=== PATIENT | female | born 1970 | race Caucasian/White ===

== ENCOUNTER 2021-07-01 08:38 | Emergency (ER) | payer MEDICAID, SELFPAY ==
[2021-07-01 08:39] VITALS: BP 137/76; PULSE 74; RESP 18; TEMP 36.4; O2SAT 99; BMI 22.3
--- NOTE | 2021-07-01 08:58 | XR_ITS ---
PROCEDURE: XR CHEST PORTABLE CLINICAL HISTORY: Productive cough, fever COMPARISON: No exams were available for comparison FINDINGS: The cardiomediastinal silhouette and pulmonary vascularity are within normal limits. The lungs are clear without infiltrates, suspicious nodules, or pleural effusions. No acute bony abnormalities. IMPRESSION: No acute findings. Dictated by: Carlos Vázquez MD 07/01/2021 09:53 Carlos Vázquez MD in OV 07/01/2021 09:53
--- NOTE | 2021-07-01 08:59 | PC.NURSE ---
Notified rad of CXR
[2021-07-01 09:05] LABS: Coronavirus 19, PCR Not Detected (NotDetected); Influenza A, PCR Not Detected (NotDetected); Influenza B, PCR Not Detected (NotDetected)
--- NOTE | 2021-07-01 09:14 | PC.NURSE ---
Rad at bedside
[2021-07-01 09:15] LABS: Basophils # 0.1 K/mm3 (0-0.2); Eosinophils % 0.6 % (0.1-12.0); Hematocrit 47.8 % (37.0-47.0); Hemoglobin 15.3 g/dL (12.2-16.2); Lymphocytes # 2.3 K/mm3 (0.7-4.5); Lymphocytes % 37.4 % (10-50); Mean Corpuscular HGB Conc 32.1 g/dL (31.8-35.4); Mean Corpuscular Hemoglobin 32.8 pg (27.0-31.2); Mean Corpuscular Volume 102.3 fl (81-99); Mean Platelet Volume 9.5 fl (7.4-10.4); Monocytes # 0.3 K/mm3 (0.1-1.0); Monocytes % 4.9 % (1.7-9.3); Neutrophils # 3.4 K/mm3 (1.8-7.8); Neutrophils % 56.1 % (37.0-80.0); Platelet Count 171 K/mm3 (142-424); Red Blood Count 4.67 M/mm3 (4.20-5.40); Red Cell Distribution Width 13.4 % (11.5-17.5)
[2021-07-01 09:21] LABS: Lactic Acid 0.7 mmol/L (0.7-2.1)
[2021-07-01 09:22] LABS: Alanine Aminotransferase 16 U/L (12-78); Albumin Level 4.1 g/dl (3.5-5.0); Albumin/Globulin Ratio 1.6 (1.1-1.8); Alkaline Phosphatase 110 U/L (38-126); Aspartate Amino Transferase 34 U/L (14-36); Bilirubin,Total 0.2 mg/dl (0.2-1.3); Blood Urea Nitrogen 10 mg/dl (7-17); Calcium 8.9 mg/dl (8.4-10.2); Carbon Dioxide 31 mmol/L (22.0-30.0); Chloride 102 mmol/L (98-107); Creatinine Clearance Estimated 94 mL/min (50-200); Estimated Glomerular Filt Rate 105 ml/min (>60); GFR (African American) 128 ML/MIN (>60); Globulin 2.6 g/dL (1.3-3.2); Glucose 98 mg/dl (74-100); Sodium 138 mmol/L (136-145); Total Protein,Serum 6.7 g/dl (6.3-8.2)
--- NOTE | 2021-07-01 10:18 | HMH.EDGENADL ---
ED Disposition Clinical Impression: Viral infection Disposition: Home, Self-Care Condition on Discharge: Good Instructions: DI for Viral Upper Respiratory Infection -- Adult Referrals: Lane Medina [Primary Care Provider] - Time of Disposition: 10:45 - Critical Care Critical Care Time: No Attestation: On 07/01/21, the high probability of a clinically significant, sudden or life threatening deterioration of the following system(s) required my full and direct attention, intervention and personal management. The time I documented below is in addition to time spent performing reported procedures but includes the following listed in this critical care notation. Medical Decision Making - Medical Records Medical records reviewed: Yes: I reviewed the patient's medical records. - Erwin Inquiry Pt receiving controlled substance: No Vital Signs: 07/01/21 08:39 07/01/21 10:33 Temperature 97.5 F L 98.1 F Temperature Source Oral Pulse Rate 72 Pulse Rate [Right Radial] 74 Respiratory Rate 18 16 Blood Pressure 121/69 Blood Pressure [Right Arm] 137/76 Blood Pressure Mean [Right Arm] 96 Blood Pressure Source [Right Arm] Automatic Cuff Blood Pressure Position [Right Arm] Sitting 02 Sat by Pulse Oximetry 99 Oxygen Delivery Method Room Air Room Air - Lab Data Lab results reviewed: Yes: I reviewed the patient's lab results. Lab Results 07/01/21 08:45: SARS-CoV-2 (PCR) Not detected, Influenza A Untype (PCR) Not detected, Influenza Type B (PCR) Not detected 07/01/21 09:03: WBC 6.0, RBC 4.67, Hgb 15.3, Hct 47.8 H, MCV 102.3 H, MCH 32.8 H, MCHC 32.1, RDW 13.4, Plt Count 171, MPV 9.5, Neut % (Auto) 56.1, Lymph % (Auto) 37.4, Bonner % (Auto) 4.9, Eos % (Auto) 0.6, Baso % (Auto) 1.0, Neut # (Auto) 3.4, Lymph # (Auto) 2.3, Bonner # (Auto) 0.3, Eos # (Auto) 0.0, Baso # (Auto) 0.1 07/01/21 09:03: Sodium 138, Potassium 4.0, Chloride 102, Carbon Dioxide 31 H, Anion Gap 9.0, BUN 10, Creatinine 0.60, Estimated Creat Clear 94, Estimated GFR 105, Est GFR ( Amer) 128, Glucose 98, Calcium 8.9, Total Bilirubin 0.2, AST 34, ALT 16, Alkaline Phosphatase 110, Total Protein 6.7, Albumin 4.1, Globulin 2.6, Albumin/Globulin Ratio 1.6 07/01/21 09:03: Lactate 0.7 Result diagrams: 07/01/21 09:03 07/01/21 09:03 Medical Decision Narrative: Miss Arredondo is a 50-year-old female with no significant past medical history who presents to the emergency department with cough, fever and congestion. Patient is afebrile and hemodynamically stable on arrival. Bedside chest x-ray shows no consolidations or evidence of pneumonia. Patient is swab for COVID-19 which is negative. Basic labs and lactic acid are nonremarkable. Patient is given Tylenol and ibuprofen for symptomatic relief. Patient is instructed to follow-up with her primary care physician in 2 to 3 days for further management and to return to the ED for any concerning symptoms such as difficulty breathing, chest pain, inability to eat and drink or any other concerning symptoms. General Adult HPI - General Chief complaint: Upper Respiratory Infection Stated complaint: hurts all over,congestion,SOA Time Seen by Provider: 07/01/21 08:40 Mode of Arrival: Ambulatory Source of Information: Patient Limitations: No Limitations Description of Symptoms (Recalled from ER Triage Doc. by RN): Pt states that she lost her voice on Monday and regained it on Monday. Pt states that yesterday she began having a productive cough with thick green/yellow sputum, bodyaches, fever, CAO - History of Present Illness HPI narrative: Miss Arredondo is a 50 yo female w/ no significant PMH who presents to the ED for productive cough with thick green/yellow sputum, generalized bodyaches, fever and headache. Patient denies any known COVID exposures, no other sick contacts. Patient reports she is eating and drinking appropriately. No bowel changes, urinary sx, chest pain, dyspnea noted. Patient denies N/V. No other sy
[2021-07-01 10:33] VITALS: BP 121/69; PULSE 72; RESP 16; TEMP 36.7; O2SAT 97
== END 2021-07-01 10:35 | disposition home or self-care (01) ==
PROVIDERS: Emergency Provider Student in an Organized Health Care Education/Training Program; PCP Family Medicine
DX: B34.9 Viral infection, unspecified (principal); Z20.822 Contact with and (suspected) exposure to COVID-19
CPT/HCPCS: 71045; 80053; 83605; 85025; 99283; C9803; U0003; U0005

== ENCOUNTER 2022-11-21 22:20 | Emergency (ER) | payer MEDICAID, SELFPAY ==
[2022-11-21 22:21] VITALS: BMI 27.4
--- NOTE | 2022-11-21 22:21 | XR_ITS ---
PROCEDURE INFORMATION: Exam: XR Chest Exam date and time: 11/21/2022 10:27 PM Age: 51 years old Clinical indication: Cough; Additional info: Chest pain, cough TECHNIQUE: Imaging protocol: Radiologic exam of the chest. Views: 2 views. COMPARISON: CR XR CHEST PORTABLE 07/01/2021 9:11 AM FINDINGS: Lungs: Unremarkable. No consolidation. There is no focal mass. Pleural spaces: There is no pneumothorax. There is no pleural effusion. Heart/Mediastinum: Unremarkable. No cardiomegaly. Bones/joints: There is no fracture present. IMPRESSION: 1. There is no significant traumatic injury to the chest. 2. No acute cardiac or pulmonary process.
--- NOTE | 2022-11-21 22:21 | ECG_ITS ---
APPROVED REPORT Exam: Resting ECG HR:88 bpm ECG Measurements Heart Rate 88 AXES VA 163 P 86 QRSd 81 QRS 116 QT 349 T 87 QTc 394 Conclusion SINUS RHYTHM RIGHT ATRIAL ENLARGEMENT [0.3mV P-WAVE] POSSIBLE LEFT ATRIAL ENLARGEMENT [-0.1mV P-WAVE IN V1/V2] RIGHT VENTRICULAR HYPERTROPHY [SOME/ALL OF: PROMINENT R IN V1, LATE TRANSITION, RAD, RAMBO, SSS] ABNORMAL ECG UNCONFIRMED REPORT Electronically signed by : Romero Wilkes MD 11/22/2022 21:20:34
[2022-11-21 22:25] VITALS: BP 132/73; PULSE 91; RESP 22; TEMP 36.2; O2SAT 94; BMI 21.1
--- NOTE | 2022-11-21 22:33 | CT_ITS ---
PROCEDURE INFORMATION: Exam: CTA Chest With Contrast Exam date and time: 11/21/2022 11:23 PM Age: 51 years old Clinical indication: Injury or trauma; Patient HX: Fall down stairs today; Additional info: Fall with continued pain TECHNIQUE: Imaging protocol: Computed tomographic angiography of the chest with contrast. Exam focused on the arteries. 3D rendering (Not supervised by radiologist): MIP and/or 3D reconstructed images were created by the technologist. Radiation optimization: All CT scans at this facility use at least one of these dose optimization techniques: automated exposure control; mA and/or kV adjustment per patient size (includes targeted exams where dose is matched to clinical indication); or iterative reconstruction. Contrast material: ISOVUE; Contrast volume: 100 ml; Contrast route: INTRAVENOUS (IV); REPORTING DATA: Count of CT and Cardiac NM exams in prior 12 months: This patient has received 0 known CTs and 0 known cardiac nuclear medicine studies in the 12 months prior to the current study. COMPARISON: CR XR CHEST 2V 11/21/2022 10:27 PM FINDINGS: Pulmonary arteries: Normal. No pulmonary emboli. Aorta: Unremarkable. No aortic aneurysm. No aortic dissection. Lungs: Moderate emphysematous changes of the lungs. No focal consolidation. 6 mm densely calcified granuloma in the right lower lobe. Pleural spaces: Unremarkable. No pneumothorax. No pleural effusion. Heart: Unremarkable. No cardiomegaly. No pericardial effusion. Mediastinal space: There no mediastinal hematoma. Lymph nodes: Unremarkable. No enlarged lymph nodes. Bones/joints: No acute fracture. Soft tissues: Unremarkable. IMPRESSION: 1. There is no acute traumatic injury seen. 2. No acute cardiac or pulmonary process. 3. Moderate emphysematous changes of the lungs. COMMENTS: In the absence of a history or active diagnosis of lung cancer, it is recommended that this patient with emphysema be evaluated for enrollment in a low dose CT lung cancer screening program.
--- NOTE | 2022-11-21 22:33 | CT_ITS ---
PROCEDURE INFORMATION: Exam: CT Abdomen And Pelvis With Contrast Exam date and time: 11/21/2022 11:23 PM Age: 51 years old Clinical indication: Injury or trauma; Patient HX: Fall down stairs today; Additional info: Fall with continued pain TECHNIQUE: Imaging protocol: Computed tomography of the abdomen and pelvis with contrast. Radiation optimization: All CT scans at this facility use at least one of these dose optimization techniques: automated exposure control; mA and/or kV adjustment per patient size (includes targeted exams where dose is matched to clinical indication); or iterative reconstruction. Contrast material: ISOVUE; Contrast volume: 100 ml; Contrast route: IV; REPORTING DATA: Count of CT and Cardiac NM exams in prior 12 months: This patient has received 0 known CTs and 0 known cardiac nuclear medicine studies in the 12 months prior to the current study. COMPARISON: CR XR PELVIS 1-2V 11/21/2022 10:58 PM FINDINGS: Liver: No cirrhosis. No mass. There is no liver laceration present. Gallbladder and bile ducts: Normal. No calcified stones. No ductal dilation. Pancreas: No pancreatic ductal dilation. There is no laceration present. Spleen: No splenomegaly. There is no splenic laceration present. Adrenal glands: Normal. No mass. No laceration. Kidneys and ureters: No hydronephrosis. There is no renal laceration present. Stomach and bowel: Unremarkable. No obstruction. No mucosal thickening. Appendix: No evidence of appendicitis. Intraperitoneal space: Unremarkable. No free air. No significant fluid collection. Vasculature: No abdominal aortic aneurysm. No dissection. No rupture.. Lymph nodes: Unremarkable. No enlarged lymph nodes. Urinary bladder: Unremarkable as visualized. Reproductive: Unremarkable as visualized. Bones/joints: No acute fracture. No dislocation. Soft tissues: Unremarkable. IMPRESSION: No significant traumatic injury to the abdomen or pelvis.
--- NOTE | 2022-11-21 22:34 | CT_ITS ---
PROCEDURE INFORMATION: Exam: CT Thoracic Spine Without Contrast Exam date and time: 11/21/2022 11:17 PM Age: 51 years old Clinical indication: Injury or trauma; Patient HX: Fall down stairs today TECHNIQUE: Imaging protocol: Computed tomography of the thoracic spine without contrast. Radiation optimization: All CT scans at this facility use at least one of these dose optimization techniques: automated exposure control; mA and/or kV adjustment per patient size (includes targeted exams where dose is matched to clinical indication); or iterative reconstruction. REPORTING DATA: Count of CT and Cardiac NM exams in prior 12 months: This patient has received 0 known CTs and 0 known cardiac nuclear medicine studies in the 12 months prior to the current study. COMPARISON: CT CERVICAL SPINE WO CON 11/21/2022 11:15 PM FINDINGS: Bones/joints: No acute fracture. Normal alignment. No significant disc bulge or herniation. No severe spinal canal stenosis. No significant neural foraminal narrowing. Soft tissues: Unremarkable. IMPRESSION: There is no significant traumatic injury of the thoracic spine.
--- NOTE | 2022-11-21 22:34 | CT_ITS ---
PROCEDURE INFORMATION: Exam: CT Lumbar Spine Without Contrast Exam date and time: 11/21/2022 11:20 PM Age: 51 years old Clinical indication: Injury or trauma; Patient HX: Fall down stairs today TECHNIQUE: Imaging protocol: Computed tomography of the lumbar spine without contrast. Radiation optimization: All CT scans at this facility use at least one of these dose optimization techniques: automated exposure control; mA and/or kV adjustment per patient size (includes targeted exams where dose is matched to clinical indication); or iterative reconstruction. REPORTING DATA: Count of CT and Cardiac NM exams in prior 12 months: This patient has received 0 known CTs and 0 known cardiac nuclear medicine studies in the 12 months prior to the current study. COMPARISON: CT THORACIC SPINE WO CON 11/21/2022 11:17 PM FINDINGS: Bones/joints: No acute fracture. Normal height. Age appropriate alignment. No significant degenerative process. Soft tissues: Unremarkable. IMPRESSION: There is no significant traumatic injury of the lumbar spine.
--- NOTE | 2022-11-21 22:34 | CT_ITS ---
PROCEDURE INFORMATION: Exam: CT Cervical Spine Without Contrast Exam date and time: 11/21/2022 11:15 PM Age: 51 years old Clinical indication: Injury or trauma; Patient HX: Fall down stairs today TECHNIQUE: Imaging protocol: Computed tomography of the cervical spine without contrast. Radiation optimization: All CT scans at this facility use at least one of these dose optimization techniques: automated exposure control; mA and/or kV adjustment per patient size (includes targeted exams where dose is matched to clinical indication); or iterative reconstruction. REPORTING DATA: Count of CT and Cardiac NM exams in prior 12 months: This patient has received 0 known CTs and 0 known cardiac nuclear medicine studies in the 12 months prior to the current study. COMPARISON: CT HEAD/BRAIN WO CON 11/21/2022 11:13 PM FINDINGS: Bones/joints: No acute fracture. Normal alignment. No significant disc bulge or herniation. No severe spinal canal stenosis. No significant neural foraminal narrowing. Lungs: Lung apices are normal. Soft tissues: Unremarkable. IMPRESSION: No evidence for significant traumatic injury of the cervical spine.
--- NOTE | 2022-11-21 22:34 | CT_ITS ---
PROCEDURE INFORMATION: Exam: CT Head Without Contrast Exam date and time: 11/21/2022 11:13 PM Age: 51 years old Clinical indication: Injury or trauma; Fall TECHNIQUE: Imaging protocol: Computed tomography of the head without contrast. Radiation optimization: All CT scans at this facility use at least one of these dose optimization techniques: automated exposure control; mA and/or kV adjustment per patient size (includes targeted exams where dose is matched to clinical indication); or iterative reconstruction. REPORTING DATA: Count of CT and Cardiac NM exams in prior 12 months: This patient has received 0 known CTs and 0 known cardiac nuclear medicine studies in the 12 months prior to the current study. COMPARISON: HD CT HEAD W/O CONTRAST 09/21/2016 1:33 PM FINDINGS: Brain: Normal. No hemorrhage. Unremarkable white matter. No mass effect. Cerebral ventricles: No ventriculomegaly. Paranasal sinuses: Visualized sinuses are unremarkable. No fluid levels. Mastoid air cells: Visualized mastoid air cells are well aerated. Bones/joints: Unremarkable. No acute fracture. Soft tissues: Unremarkable. IMPRESSION: No acute intracranial abnormality.
--- NOTE | 2022-11-21 22:34 | PC.NURSE ---
patient was made aware we need to obtain a urine sample.
--- NOTE | 2022-11-21 22:35 | XR_ITS ---
PROCEDURE INFORMATION: Exam: XR Pelvis Exam date and time: 11/21/2022 10:58 PM Age: 51 years old Clinical indication: Injury or trauma; Fall; Blunt trauma (contusions or hematomas); Does not apply; Pelvic region TECHNIQUE: Imaging protocol: Radiologic exam of the pelvis. Views: 1 or 2 view. COMPARISON: No relevant prior studies available. FINDINGS: Bones/joints: Unremarkable. No acute fracture. The hips are well located. The symphysis pubis is unremarkable. The sacroiliac joints is unremarkable. Soft tissues: Unremarkable. IMPRESSION: No evidence for significant traumatic injury.
--- NOTE | 2022-11-21 22:35 | PC.NURSE ---
patient gone to RAD at this time.
[2022-11-21 22:37] LABS: Coronavirus 19, PCR Not Detected (NotDetected); Influenza A, PCR Not Detected (NotDetected); Influenza B, PCR Not Detected (NotDetected)
[2022-11-21 22:42] LABS: Basophils # 0.1 K/mm3 (0-0.2); Basophils % 0.9 % (0.1-2.0); Eosinophils # 0.1 K/mm3 (0.0-0.4); Eosinophils % 1.6 % (0.1-12.0); Hematocrit 52.4 % (37.0-47.0); Hemoglobin 16.4 g/dL (12.2-16.2); Lymphocytes # 2.6 K/mm3 (0.7-4.5); Lymphocytes % 37.8 % (10-50); Mean Corpuscular HGB Conc 31.4 g/dL (31.8-35.4); Mean Platelet Volume 9.3 fl (7.4-10.4); Monocytes # 0.5 K/mm3 (0.1-1.0); Monocytes % 7.2 % (1.7-9.3); Neutrophils # 3.6 K/mm3 (1.8-7.8); Neutrophils % 52.4 % (37.0-80.0); Platelet Count 157 K/mm3 (142-424); Red Blood Count 5.13 M/mm3 (4.20-5.40); Red Cell Distribution Width 14.4 % (11.5-17.5); White Blood Count 6.9 K/mm3 (4.8-10.8)
--- NOTE | 2022-11-21 22:44 | PC.NURSE ---
Pt returned from RAD
[2022-11-21 22:47] LABS: Lactic Acid 0.8 mmol/L (0.7-2.1)
[2022-11-21 22:50] LABS: Blood Urea Nitrogen 4 mg/dl (7-17); Calcium 8.7 mg/dl (8.4-10.2); Carbon Dioxide 38 mmol/L (22.0-30.0); Chloride 92 mmol/L (98-107); Creatinine Clearance Estimated 66 mL/min (50-200); Estimated Glomerular Filt Rate 75 ml/min (>60); GFR (African American) 91 ML/MIN (>60); Glucose 89 mg/dl (74-100); Phenytoin (Dilantin) 5.4 ug/ml (10-20); Sodium 141 mmol/L (136-145)
--- NOTE | 2022-11-21 22:54 | PC.NURSE ---
Dr. Arcos at to speak with pt
--- NOTE | 2022-11-21 22:56 | HMH.EDFALL ---
Discharge Plan Disposition Chief Complaint: Fall Prescriptions Prescriptions: No Action phenytoin sodium extended 100 mg capsule 300 mg PO DAILY Label Comments: TAKE 3 CAPSULES BY MOUTH EVERY DAY albuterol sulfate [ProAir HFA] 90 mcg/actuation HFA aerosol inhaler 1 puff INHALATION DAILY Label Comments: inhale 2 puffs four times daily as needed mirtazapine 15 mg tablet 15 mg PO DAILY Referrals Follow up/Referrals: Lane Medina [Primary Care Provider] - See instructions Clinical Impressions Clinical Impression: Fall, Multiple contusions, Seizure Instructions Patient Instructions: DI for Seizure Disorder -- Adult Discharge ED Provider: Josselyn (ED)Ramon Fall HPI General Chief Complaint: Fall Stated Complaint: Chest pain Time Seen by Provider: 11/21/22 22:56 Mode of Arrival: Family Vehicle Source of Information: Patient, Significant Other and Medical Record Limitations: No Limitations Description of Symptoms (Recalled from ER Triage Doc. by RN): 51 YO FEMALE PRESENTS TO BE EVALUATED FOLLOWING A FALL EARLIER THIS DATE. STATES THAT SHE FELL DOWN APPROX 5 STAIRS DUE TO THE STAIRS BEING WET WHILE SHE WAS CLEANING A HOUSE EARLIER. ADDITIONALL MENTIONS THAT SHE HAS A HISTORY OF SEIZURES, HAD HER MOST RECENT ONE ON MONDAY BUT THINKS THERE MIGHT BE A 'SLIGHT CHANCE SHE HAD ONE EARLIER THIS DATE FOLLOWING THE FALL BECAUSE SHE WAS ASLEEP AND THEN WOKE TO AN INCONTINENT EPISODE. PMH: SEIZURES SINCE SHE WAS 15 YO -NORMALLY CONTROLLED BY DILANTIN, COPD-END STAGE, CURRENT DAILY SMOKER, HYPERTENSION, CHRONIC PAIN. ALLERGIC TO PCN AND IODINE BUT STATES SHE HAS HAD IODINE RELATED ITEMS WITHOUT REACTION. DENIES N/V/D. DENIES DYSURIA, DENIES HEMATURIA. NO VISIBLE ABRASIONS TO RIGHT [place] WHICH IS WHERE SHE REPORTS SHE LANDED DURING HER FALL. COMPLAINS OF PAIN POSTERIOR AND ANTERIOR TRUNK, BUE, BILATERAL HIPS. History of Present Illness HPI Narrative: recent sz despite meds and tonight with slip injury and fell down steps complaint: fall Onset (ago): hour(s) Fall from: down stairs (#) Fall witnessed: no Place fall occurred: home Loss of consciousness: unsure Prolonged down time: no Context: tripped/slipped Location of injury: head, neck, back, abdomen and pelvis Severity: moderate Associated symptoms (after fall): headache and neck pain Related Data Home Medications Medication Instructions Recorded Confirmed albuterol sulfate 90 mcg/actuation 1 puff inhalation DAILY 11/21/22 11/21/22 aerosol inhaler (ProAir HFA) INTERMITTENT SOA mirtazapine 15 mg tablet 15 mg PO DAILY nerve 11/21/22 11/21/22 phenytoin sodium extended 100 mg 300 mg PO DAILY SEIZURES 11/21/22 11/22/22 capsule Allergies Allergy/AdvReac Type Severity Reaction Status Date / Time codeine [CODEINE] Allergy Unknown Verified 11/22/22 00:25 iodine [IODINE] Allergy Unknown Verified 11/22/22 00:25 [facility] Disclaimer: The information contained in this section may have been updated after the patient was seen, as this information can be updated by other users. Social History Smoking Status: Current every day smoker alcohol intake: never current occupational status: employed Travel in the last 8 weeks: None ROS Obtained: Yes All systems reviewed & no additional complaints except as documented Physical Exam General General appearance: alert Head Head exam: normocephalic Eye Eye exam: Present PERRL and EOMI ENT ENT exam: Present mucous membranes moist Neck Neck exam: Present trachea midline and tenderness Respiratory Respiratory exam: Present normal lung sounds bilaterally; Absent respiratory distress Cardiovascular Cardiovascular exam: Present regular rate Abdominal Exam Abdominal exam: Present soft; Absent tenderness or guarding Extremities Exam Extremities exam: Present full ROM Back Exam Back exam: Present tenderness and paraspinal tenderness; Absent vertebral tenderness Neurological Exam Neurolog
[2022-11-21 22:59] LABS: NT Pro Brain Natriuretic Pep. < 20.0 pg/mL (0-125)
[2022-11-21 23:00] VITALS: BP 118/72; PULSE 94; O2SAT 90
--- NOTE | 2022-11-21 23:01 | PC.NURSE ---
Pt up to bathroom and able to obtain urine sample.
[2022-11-21 23:02] LABS: Troponin I < 0.01 ng/ml (0.00-0.034)
[2022-11-21 23:03] LABS: Microscopic, Urine URINE MICROSCOPIC (MICROSCOPIC)
[2022-11-21 23:06] LABS: C-Reactive Protein 4.3 mg/L (0-4)
[2022-11-21 23:17] LABS: Appearance,Urine CLEAR (Clear); Bilirubin,Urine Negative (Negative); Blood, Urine Negative (Negative); Color,Urine YELLOW (Yellow); Glucose,Urine (UA) Negative (Negative); Ketones,Urine Negative (Negative); Leukocyte Esterase,Urine Negative (Negative); Nitrate,Urine Negative (Negative); Protein,Urine Negative (Negative); Specific Gravity, Urine <= 1.005 (1.005-1.030); Urobilinogen,Urine 0.2 EU/dl (0.2)
[2022-11-21 23:22] LABS: Erythrocyte Sedimentation Rate 1 mm/hr (0-30)
[2022-11-21 23:26] LABS: Squamous Epithelial Cell,Urine Occasional #/hpf (0-5); WBC,Urine Occasional #/hpf (0-3)
[2022-11-22] VITALS: BP 104/65; PULSE 86; O2SAT 90
[2022-11-22 00:07] LABS: Alanine Aminotransferase 20 U/L (12-78); Albumin Level 4.2 g/dl (3.5-5.0); Alkaline Phosphatase 92 U/L (38-126); Aspartate Amino Transferase 30 U/L (14-36); Bilirubin,Indirect 0.2 mg/dL (0.0-0.9); Bilirubin,Total 0.2 mg/dl (0.2-1.3); Bilirubin,Unconjugated 0.2 mg/dL (0.0-1.1); Total Protein,Serum 6.8 g/dl (6.3-8.2)
--- NOTE | 2022-11-22 00:19 | PC.NURSE ---
called [facility], s/w Joycelyn, to check how much dilantin to give to be therapeutic.
[2022-11-22 00:35] VITALS: BP 123/70; PULSE 88; RESP 19; TEMP 36.6; O2SAT 95
--- NOTE | 2022-11-22 00:37 | PC.NURSE ---
Attempted to give pt Dilantin loading dose, however pt was adamant to leave. She states she will follow up with her PCP regarding her low Dilantin level. Dr. Arcos aware.
== END 2022-11-22 00:37 | disposition home or self-care (01) ==
PROVIDERS: Emergency Provider Emergency Medicine; PCP Family Medicine
DX: G40.919 Epilepsy, unspecified, intractable, without status epilepticus (principal); R07.9 Chest pain, unspecified; R51.9 Headache, unspecified; M54.2 Cervicalgia; F17.200 Nicotine dependence, unspecified, uncomplicated; W10.9XXA Fall (on) (from) unspecified stairs and steps, initial encounter
CPT/HCPCS: 70450; 71046; 71275; 72125; 72128; 72131; 72170; 74177; 80048; 80076; 80185; 81001; 83605; 83735; 83880; 84484; 85025; 85651; 86140; 87040; 87635; 87636; 93005; 96360; 99285; C9803; Q9967; U0003; U0005

== ENCOUNTER 2023-09-05 13:58 | Outpatient (CLI) | payer MEDICAID, SELFPAY ==
--- NOTE | 2023-09-05 13:58 | CT_ITS ---
FINAL REPORT TECHNIQUE: Then section axial CT images of the chest were obtained with contrast. Three-D reformatted images were also obtained.This study was performed with techniques to keep radiation doses as low as reasonably achievable (ALARA). Individualized dose reduction techniques using automated exposure control or adjustment of mA and/or kV according to the patient''s size were employed. CLINICAL HISTORY: Hemptysis COMPARISON: 11/21/2022 FINDINGS: There is no evidence of pulmonary embolism. There is no evidence of thoracic aortic aneurysm or dissection. There is no evidence of mediastinal or hilar mass or adenopathy. Nodule in the superior segment of the left lower lobe measures 15 mm, was 8 mm. 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 There is moderate emphysema and mild scarring. There is a calcified granuloma in the superior segment of the right lower lobe. Limited images of the upper abdomen demonstrate mild bilateral adrenal gland enlargement which is stable and may represent adenoma or hyperplasia. IMPRESSION: Enlarging mass superior segment left lower lobe worrisome for neoplasm. New large mediastinal mass may represent metastatic adenopathy or other neoplasm. Reviewed, Interpreted and Dictated by Jefferson Rojas III, MD Transcribed by Jo Ann Shirley Authenticated and [facility]
[2023-09-05] MEDS: 0.9 % SODIUM CHLORIDE 50 ML VIAL IV (14:28)
[2023-09-05] MEDS: IOPAMIDOL-370 (76%);100ML BOTTLE 70 ML IV (14:29)
== END 2023-09-05 23:59 ==
LOC: RAD 13:58
PROVIDERS: PCP Family Medicine; Visit Provider Internal Medicine Pulmonary Disease
DX: R91.1 Solitary pulmonary nodule (principal); R04.2 Hemoptysis; R59.0 Localized enlarged lymph nodes; R07.9 Chest pain, unspecified; J43.9 Emphysema, unspecified; Z72.0 Tobacco use
CPT/HCPCS: 71275; Q9967

== ENCOUNTER 2023-09-11 17:30 | Inpatient (IN) | payer MEDICAID, SELFPAY ==
[2023-09-08 10:32] VITALS: BMI 19.6
[2023-09-11] VITALS (19 sets, daily range): BP systolic 102–166; BP diastolic 62–98; PULSE 82–105; RESP 12–82; TEMP 36.3–37.2; O2SAT 4–96; BMI 22.1
--- NOTE | 2023-09-11 09:53 | P.PNANES_ITS ---
[facility] Disclaimer: The information contained in this section may have been updated after the patient was seen, as this information can be updated by other users. Medical History Seizure disorder COPD (chronic obstructive pulmonary disease) Hilar lymphadenopathy Mediastinal lymphadenopathy Lung nodule Pulmonary emphysema Hemoptysis Surgical History History of breast surgery History of tubal ligation Family History Other COPD (chronic obstructive pulmonary disease) Cancer Diabetes Hypertension Social History Smoking Status: Current some day smoker alcohol intake: never substance use type: denies use current occupational status: employed Travel in the last 8 weeks: None [facility] Anesthesia Checklist Patient Identification Patient Identification: Arm Band and Verbal (Name & ) Structural Data Admitted From: Home Planned Operative Procedure/s: Bronch Consent for Planned Operative Procedure(s) Verified: Yes Verified Documents: Surgical Consent and History and Physical NPO Status Verified Time NPO: 20:00 Chart Verification Results Verified: CBC, BMP, ECG and Chest Xray Additional verifications Patient : No Anesthesia Reactions: Yes (+PONV) Cardiovascular Assessment Heart Sounds: S1 & S2 Pulse Rhythm: Irregular Peripheral Edema: No Airway Assessment Mallampati Score:: Class II C-Spine Mobility Assessed: Yes (FROM) TMJ Mobility Assessed: Yes Dentition: Edentulous Neurological Assessment Level of Consciousness: Awake, Alert, Appropriate and Follows Commands Hx Seizures: Yes (On Dilantin. Last Sz ~1 y/a) Numbness or tingling in extremities: No Anesthesia Plan Anesthesia Risk discussed: Yes Anesthesia Plan: Verified ASA Class: III Anesthesia Type: General
[2023-09-11] MEDS: LACTATED RINGERS 1000ML 1,000 ML 25 ML IV (10:11)
[2023-09-11 10:21] LABS: Basophils # 0.1 K/mm3 (0-0.2); Basophils % 1.4 % (0.1-2.0); Eosinophils % 0.7 % (0.1-12.0); Hematocrit 52.8 % (37.0-47.0); Hemoglobin 16.7 g/dL (12.2-16.2); Lymphocytes # 1.8 K/mm3 (0.7-4.5); Lymphocytes % 34.9 % (10-50); Mean Corpuscular HGB Conc 31.7 g/dL (31.8-35.4); Mean Corpuscular Hemoglobin 34.5 pg (27.0-31.2); Mean Corpuscular Volume 108.8 fl (81-99); Monocytes # 0.3 K/mm3 (0.1-1.0); Monocytes % 5.6 % (1.7-9.3); Neutrophils # 2.9 K/mm3 (1.8-7.8); Neutrophils % 57.4 % (37.0-80.0); Platelet Count 141 K/mm3 (142-424); Red Blood Count 4.85 M/mm3 (4.20-5.40); Red Cell Distribution Width 14.7 % (11.5-17.5); White Blood Count 5.1 K/mm3 (4.8-10.8)
[2023-09-11 10:22] LABS: Chloride 101 mmol/L (98-107)
[2023-09-11 10:23] LABS: Potassium 3.9 mmoL/L (3.5-5.1); Sodium 139 mmol/L (136-145)
[2023-09-11 10:26] LABS: Anion Gap 5.9 mEq/L (5-15); Blood Urea Nitrogen 10 mg/dl (7-17); Calcium 8.9 mg/dl (8.4-10.2); Carbon Dioxide 36 mmol/L (22.0-30.0); Creatinine Clearance Estimated 69 mL/min (50-200); Estimated Glomerular Filt Rate 88 ml/min (>60); GFR (African American) 106 ML/MIN (>60); Glucose 94 mg/dl (74-100)
[2023-09-11] MEDS: MIDAZOLAM 2MG/2ML VIAL 2 MG (12:30)
--- NOTE | 2023-09-11 15:43 | XR_ITS ---
PROCEDURE INFORMATION: Exam: XR Chest Exam date and time: 09/11/2023 3:47 PM Age: 52 years old Clinical indication: Screening exam; Other screening; Prior surgery; Surgery date: Post-operative (0-2 days); Surgery type: Bronch; Additional info: Md order TECHNIQUE: Imaging protocol: Radiologic exam of the chest. Views: 1 view. COMPARISON: CT ANGIO CHEST PE PROTOCOL 09/05/2023 2:17 PM FINDINGS: Lungs: Hazy airspace opacity in left upper lobe is new from prior exam. Known left upper lobe lesion and mediastinal lymphadenopathy are better characterized on prior chest CT. Pleural spaces: Unremarkable. No pleural effusion. No pneumothorax. Heart/Mediastinum: Unremarkable. No cardiomegaly. Bones/joints: Unremarkable. IMPRESSION: Findings suspicious for left upper lobe pneumonia
--- NOTE | 2023-09-11 15:45 | EXP.ANES.I ---
[facility] Anesthesia Record Part I Anesthesia Record I Intake, IV Amount: 1,000 Hydration: Adequate Estimated blood loss (mL): 0 Urine output (mL): 0 Blood Products used (#): none Blood Pressure: 166/98 SaO2: 91 Pulse Rate: 99 Airway Patency: Patent Respiratory Rate: 16 Temperature: 97.4 F Patient is:: Drowsy and Stable Stable to PACU at:: 15:40
--- NOTE | 2023-09-11 15:46 | P.PCN_ITS ---
Procedure: Date: 09/11/23 Patient Date of :: 1970 Procedure Performed:: Bronchoscopy airway examination, endobronchial ultrasound-guided fine-needle aspiration Indications:: Lung mass and lymphadenopathy Performing Provider:: Guerda Damon MD Referring Provider:: Dr: Lane Medina Sedation:: General anesthesia Procedure:: Bronchoscopy, airway examination and endobronchial ultrasound-guided fine- needle aspiration: Clean EBUS bronchoscopy was advanced the ET tube and lymph node surveillance was performed. Patient noted to have lymph nodes at station 10 L, conglomerate of mass and lymphadenopathy at station 7, station 4L and station 4R. EBUS FNA was performed at each of these lymph node stations and lymph node samples were collected separately in [facility] for cytopathologic examination. No other lymphadenopathy noted. EBUS bronchoscopy was retracted and a clean diagnostic bronchoscopy was advanced for airway surveillance. Airways appeared clear devoid of any mucous plugging secretions or clotting in the right lung garner. Extrinsic airway compression of the left mainstem bronchus noted with near complete occlusion. No obvious endobronchial lesion noted. Bronchoscopy was able to be advanced beyond airway compression on left upper lobe lingular and lower lobe bronchi appeared clear with no obvious evidence of endobronchial lesion. Patient tolerated the procedure well. No acute immediate complications. Findings:: Please see the procedure note Recommendations:: Postoperative bronchoscopy instructions. Follow in pulmonary clinic in 5 to 7 days with the results Follow with PET/CT results Complications:: No acute immediate complications Estimated blood obtained (mL): 5
[2023-09-11] MEDS: IPRATROPIUM/ALBUTEROL 3 ML NEB IH ×3 (16:29→23:07)
[2023-09-11 16:50] LABS: Chloride, Arterial 98 mmol/L (98-107); Lactate Arterial 0.6 mmol/L (0.4-2.0); Potassium, Arterial 4.1 mmoL/L (3.5-5.1); Sodium Arterial 133 mmol/L (137-145)
[2023-09-11 16:52] LABS: ABG Base Excess 3.5 mmol/L (-2.4-2.3); ABG HCO3 29.6 mmhg (22.0-26.0); ABG Oxygen Saturation 87 % (90-100); ABG PH 7.32 mmol/L (7.35-7.45); ABG PO2 51.2 mmhg (80-100); ABG TCO2 31.4 mmhg (23-27)
[2023-09-11 16:57] LABS: Calcium, Arterial 4.7 mg/dL (8.5-10.1)
--- NOTE | 2023-09-11 16:57 | SUR.PHASEI ---
7317: Spoke with Dr. Damon about pt's ABG results. Pt O2 sat 85% on 4L NC. Dr. Damon will admit for O2 management. 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
[2023-09-11 16:58] LABS: ABG PCO2 58.8 mmhg (35.0-45.0); Allen's Test Acceptable; Oxygen 4L NC %; Source Right Radial
--- NOTE | 2023-09-11 17:03 | SUR.PHASEI ---
1635: Spoke with Dr. Damon concerning pt's O2 sat 84% 4L NC after duoneb tx. ABG ordered.
--- NOTE | 2023-09-11 17:13 | P.HP_ITS ---
History of Present Illness *Admission Date: 09/11/23 *Reason for visit:: shortness of breath, hypoxia *History of present illness: 52-year-old female continues to smoke. Has an extensive smoking history with over 30 pack years. Family history of lung cancer and pulmonary disease. Presented to pulmonology clinic a week ago for eval after having an abnormal CT showing lung nodules, lymphadenopathy, lung mass. Mass shows compressive effect on her left mainstem bronchus. Reporting some scant hemoptysis. Brought in electively for bronchoscopy to evaluate lung mass. Tolerated procedure well but after her procedure she developed hypoxia after extubation. Complaining of chest discomfort after biopsy and bronchoscopy. No nausea or vomiting. Alert and oriented but still fatigued from anesthesia. Afebrile. Medicine consulted to evaluate for admission. Patient necessitating 4 to 6 L oxygen to maintain appropriate sats. Reports she wears oxygen as needed at home, 2 L. Wears it rarely. Also reports history of seizures, anxiety, and COPD. Feeling more anxious since diagnosis. Recently started on Klonopin. [facility] Disclaimer: The information contained in this section may have been updated after the patient was seen, as this information can be updated by other users. Medical History (Updated 09/11/23 @ 19:16 by Vipul Cotter MD) Seizure disorder COPD (chronic obstructive pulmonary disease) Hilar lymphadenopathy Mediastinal lymphadenopathy Lung nodule Pulmonary emphysema Hemoptysis Surgical History History of breast surgery History of tubal ligation Family History Other COPD (chronic obstructive pulmonary disease) Cancer Diabetes Hypertension Social History Smoking Status: Current every day smoker tobacco type: cigarettes years smoked: 40 second hand exposure: Yes alcohol intake: never substance use type: marijuana current occupational status: employed Travel in the last 8 weeks: None Review of Systems Review of Systems Review of systems (narrative): 14 point review of systems performed, pertinent positives and negatives as per HPI Meds Home Medications and Allergies Home Medications Medication Instructions Recorded Confirmed Type albuterol sulfate 90 mcg/actuation 1 puff inhalation DAILY 11/21/22 09/11/23 History aerosol inhaler (ProAir HFA) INTERMITTENT SOA phenytoin sodium extended 100 mg 300 mg PO DAILY SEIZURES 11/21/22 09/08/23 History capsule fluticasone fur. 100 mcg-umeclid 1 inh inhalation DAILY 90 days #90 09/04/23 09/08/23 Rx 62.5 mcg-vilant 25 mcg ea inhalat.powder (Trelegy Ellipta) ipratropium 0.5 mg-albuterol 3 mg 3 ml inhalation QID PRN shortness 09/04/23 09/08/23 Rx (2.5 mg base)/3 mL nebulization of breath or wheezing 90 days #270 soln mL nicotine 7 mg/24 hr daily 1 patch transdermal Q24H #28 ea 09/04/23 09/11/23 Rx transdermal patch clonazepam 2 mg tablet (Klonopin) 5 mg PO DAILY Anxiety 09/08/23 09/11/23 History famotidine 20 mg tablet 20 mg PO DAILY 09/08/23 09/11/23 History New Prescriptions to Start Prescriptions: Allergies Allergy/AdvReac Type Severity Reaction Status Date / Time Penicillins Allergy Severe Swelling Verified 09/11/23 09:47 of Lip/Tongue/Throat Exam Data for Last 24 hours Vital signs and Labs for Last 24 Hours: Temp Pulse Resp BP Pulse Ox O2 Del Method O2 Flow Rate 97.4 F L 98 H 16 139/77 95 Nasal Cannula 4 09/11/23 15:46 09/11/23 17:02 09/11/23 17:02 09/11/23 17:02 09/11/23 17:02 09/11/23 17:02 09/11/23 17:02 Laboratory Results - last 24 hr 09/11/23 10:08: WBC 5.1, RBC 4.85, Hgb 16.7 H, Hct 52.8 H, MCV 108.8 H, MCH 34.5 H, MCHC 31.7 L, RDW 14.7, Plt Count 141 L, MPV 10.0, Neut % (Auto) 57.4, Lymph % (Auto) 34.9, [place] % (Auto) 5.6, Eos % (Auto) 0.7, Baso % (Auto) 1.4, Neut # (Auto) 2.9, Lymph # (Auto) 1.8, [place] # (Auto) 0.3, Eos # (Auto) 0.0, Baso # (Auto) 0.1, Sodium 139, Potassium 3.9, Chloride 101, Carbon Dioxide 36 H, Anion Gap 5.9, BUN 10, Creatinine 0.70, Estimated Creat Clear 69, Estimated GFR 88, Est GFR ( Amer) 106, Glucose 94, Calcium 8.9 09/11/23 16:37: Specimen Source Right radial, O2 % 4l nc, ABG pH 7.32 L, ABG pCO2 58.8 H, ABG pO2 51.2 L, ABG HCO3 29.6 H, ABG Total CO2 31.4 H, ABG O2 Saturation 87 L*, ABG Base Excess 3.5 H, Carlos Test Acceptable, ABG Sodium 133 L , ABG Potassium 4.1, ABG Chloride 98, ABG Lactate 0.6, Arterial Blood Potassium 4.1, Arterial Blood Chloride 98 I & O for Last 24 hours: Intake & Output 09/08/23 09/09/23 09/10/23 09/11/23 22:59 22:59 23:59 23:59 Intake Total 1000 / 1000 Balance 1000 / 1000 Weight Constitutional Constitutional: no acute distress, thin and cooperative *Routine HEENT Exam Head: Present normocephalic Eye: Present EOMI and PERRL ENT: Present mucous membranes moist *Routine Neck Exam Neck: Present supple; Absent lymphadenopathy *Routine Respiratory Exam Respiratory: Present prolonged expiratory phase and normal respiratory effort; Absent rhonchi, wheezes or crackles *Routine Cardiovascular Exam Cardiovascular: Present tachycardia Comments: Regular rhythm *Routine Abdominal Exam Abdominal: Present soft and normoactive bowel sounds; Absent tenderness *Routine Rectal Exam Rectal:: deferred *Routine Genitalia Exam Genitalia:: deferred *Routine Extremities Exam Extremities: Absent cyanosis, clubbing or edema *Routine Skin Exam Skin: Present warm; Absent rash *Routine Neurological Exam Neurological: Present alert, oriented X3 and moving all extremities; Absent altered mental status or tremors Comments: Dozing off, will wake and answer questions appropriately but fatigued. Assessment and Plan *Assessment and plan (1) Acute hypoxemic respiratory failure: Status: Acute Category: Medical Code(s): J96.01 - Acute respiratory failure with hypoxia (2) Mediastinal lymphadenopathy: Status: Acute Category: Medical Code(s): R59.0 - Localized enlarged lymph nodes (3) Hilar lymphadenopathy: Status: Acute Category: Medical Code(s): R59.0 - Localized enlarged lymph nodes (4) Seizure disorder: Status: Acute Category: Medical Code(s): G40.909 - Epilepsy, unspecified, not intractable, without status epilepticus (5) Pulmonary emphysema: Status: Acute Qualifiers: Emphysema type: centrilobular Qualified Code(s): J43.2 - Centrilobular emphysema Category: Medical Code(s): J43.9 - Emphysema, unspecified Plan 52-year-old female with history of COPD and tobacco use disorder who presented for elective bronchoscopy. After procedure was hypoxic necessitating supplemental oxygen. Discussed case with pulmonology, request admission for oxygen monitoring overnight. Medicine agreed to admit for further management. Patient still drowsy from anesthesia. Having anxiety with wearing oxygen. Complaining of some mild chest discomfort after her bronch. Hemodynamically stable. Necessitating admission. Problems addressed as follows: Acute hypoxemic respiratory failure COPD Lymphadenopathy -Hypoxic with elevated CO2 after procedure. Necessitating 4 to 6 L supplemental oxygen to maintain sats around 90%. Discussed case with pulmonology, may need to escalate to BiPAP or Vapotherm tonight. -DuoNeb scheduled every 6 hours, budesonide twice daily -No indication for antibiotics at this time. Will continue to monitor -CBC, CMP, magnesium ordered for the morning. - White cell count normal at 5.1, hemoglobin 16.7 - Chemistry with normal electrolytes. Bicarb elevated at 36. - Blood gas with hypercapnia at 58, pH 7.32. pO2 51. -Biopsies obtained of hilar and mediastinal lymphadenopathy. Tissue pathology pending. -Continue Trelegy 100 inhaler Anxiety: Patient on Klonopin at home, says she takes it twice daily as needed, prescribed once daily. Will continue Ativan 0.5 mg every 6 hours as needed for anxiety Seizure disorder: Continue phenytoin 100 mg 3 times a day. Phenytoin level pending Tobacco use disorder: nicotine patch 7 mg daily as needed Full code Regular diet Holding anticoagulation status post [facility] with risk for hemoptysis
[2023-09-11] MEDS: MORPHINE 2MG/ML SYRINGE 2 MG IV (17:19)
--- NOTE | 2023-09-11 17:33 | PC.NURSE ---
arrived by stretcher from surgery
--- NOTE | 2023-09-11 18:12 | ECG_ITS ---
APPROVED REPORT Exam: Resting ECG HR:95 bpm ECG Measurements Heart Rate 95 AXES MI 158 P 93 QRSd 90 QRS 160 QT 350 T 92 QTc 403 Conclusion SINUS RHYTHM ARM LEADS REVERSED [INVERTED P AND QRS IN I] NORMAL ECG INTERPRETATION BASED ON A DEFAULT AGE OF 40 YEARS Electronically signed by : MATTIE JONES, 09/12/2023 02:06:01
[2023-09-11] MEDS: BUDESONIDE 0.5MG/2ML NEB 0.5 MG IH (18:44)
[2023-09-11 20:01] LABS: Phenytoin (Dilantin) 17.3 ug/ml (10-20)
[2023-09-11] MEDS: LORazepam 0.5MG TABLET 0.5 MG PO (20:11)
[2023-09-11] MEDS: PHENYTOIN 100MG CAPSULE 100 MG PO (20:11)
[2023-09-11] MEDS: ACETAMINOPHEN 325MG TAB 650 MG PO (22:11)
[2023-09-11 23:51] LABS: ABG Base Excess 3.3 mmol/L (-2.4-2.3); ABG HCO3 28.8 mmhg (22.0-26.0); ABG Oxygen Saturation 91 % (90-100); ABG PH 7.36 mmol/L (7.35-7.45); ABG PO2 60.8 mmhg (80-100); ABG TCO2 30.4 mmhg (23-27)
[2023-09-12] VITALS (21 sets, daily range): BP systolic 108–157; BP diastolic 54–85; PULSE 72–101; RESP 13–98; TEMP 36.1–37.1; O2SAT 83–99; BMI 22.1
[2023-09-12] LABS: Allen's Test Acceptable; Oxygen 30L/70% VAPOTHERM %; Source Right Radial
[2023-09-12 00:01] LABS: ABG PCO2 52.4 mmhg (35.0-45.0)
--- NOTE | 2023-09-12 02:30 | PC.NURSE ---
Addendum entered by Naomy Lopez RN 09/12/23 06:19: ORDER FOR PEPCID NOT PROTONIX Original Note: PT C/O OF CRUSHING BELLY PAIN ; THIS RN NOTIFIED [facility]; SEE ORDERS FOR PROTONIX
--- NOTE | 2023-09-12 06:00 | XR_ITS ---
FINAL REPORT CLINICAL HISTORY: VAPOTHERM COMPARISON: 11/21/2022 FINDINGS: SINGLE-VIEW CHEST The heart size is normal. The mediastinum is normal. There are new, left lung opacities consistent with pneumonia. Mild right upper lobe opacities are favored to be atelectasis. There is no pneumothorax. IMPRESSION: New left lung pneumonia. Reviewed, Interpreted and Dictated by Jefferson Rojas III, MD Transcribed by Vanessa Valverde Authenticated and [facility]
[2023-09-12] MEDS: IBUPROFEN 400 MG TABLET PO ×2 (06:14→14:14)
[2023-09-12] MEDS: IPRATROPIUM/ALBUTEROL 3 ML NEB IH ×4 (06:19→23:40)
[2023-09-12] MEDS: BUDESONIDE 0.5MG/2ML NEB 0.5 MG IH ×2 (06:20→18:17)
[2023-09-12 07:35] LABS: Alanine Aminotransferase 21 U/L (12-78); Albumin Level 4.3 g/dl (3.5-5.0); Albumin/Globulin Ratio 1.7 (1.1-1.8); Alkaline Phosphatase 110 U/L (38-126); Anion Gap 9.7 mEq/L (5-15); Aspartate Amino Transferase 39 U/L (14-36); Bilirubin,Total 0.4 mg/dl (0.2-1.3); Blood Urea Nitrogen 9 mg/dl (7-17); Calcium 8.9 mg/dl (8.4-10.2); Carbon Dioxide 32 mmol/L (22.0-30.0); Chloride 99 mmol/L (98-107); Creatinine Clearance Estimated 78 mL/min (50-200); Estimated Glomerular Filt Rate 88 ml/min (>60); GFR (African American) 106 ML/MIN (>60); Globulin 2.5 g/dL (1.3-3.2); Glucose 111 mg/dl (74-100); Potassium 3.7 mmoL/L (3.5-5.1); Sodium 137 mmol/L (136-145); Total Protein,Serum 6.8 g/dl (6.3-8.2)
[2023-09-12 07:38] LABS: ABG Base Excess 5.2 mmol/L (-2.4-2.3); ABG Oxygen Saturation 84 % (90-100); ABG PCO2 49.5 mmhg (35.0-45.0); ABG TCO2 31.5 mmhg (23-27)
[2023-09-12 07:39] LABS: Oxygen 80% %; Source L BRACHIAL
[2023-09-12 07:42] LABS: ABG PO2 47.8 mmhg (80-100)
--- NOTE | 2023-09-12 07:53 | EXP.ANES.II ---
[facility] Anesthesia Record Part II Anesthesia Record Part II Discharge Time: 17:12 Destination: Medical Surgical Department PACU nurse assessment reviewed?: Yes Patient Condition:: Good Anesthesia Complications:: None Swallowing reflex intact?: Yes Airway Patency: Patent Cyanosis?: No Blood Pressure: 137/78 SaO2: 96 Respiratory Rate: 19 Pulse Rate: 100 Temperature: 97.4 F Mental Status: Alert & Oriented Pain level:: 5 Nausea and/or vomitting:: None Intake, IV Amount: 0 Hydration: Adequate Comments:: Pt admitted postoperatively d/t hypoxemia/O2 requirements
--- NOTE | 2023-09-12 08:28 | HMH.PHAINT1 ---
Pharmacy Intervention Comments: Verified all home medications using external fill history from pharmacy and spoke with patient at bedside.
[2023-09-12 08:29] LABS: Basophils # 0.1 K/mm3 (0-0.2); Basophils % 0.5 % (0.1-2.0); Eosinophils % 0.3 % (0.1-12.0); Hematocrit 50.9 % (37.0-47.0); Hemoglobin 17.7 g/dL (12.2-16.2); Lymphocytes # 2.6 K/mm3 (0.7-4.5); Lymphocytes % 25.4 % (10-50); Mean Corpuscular HGB Conc 34.7 g/dL (31.8-35.4); Mean Corpuscular Hemoglobin 36.8 pg (27.0-31.2); Mean Corpuscular Volume 106.1 fl (81-99); Mean Platelet Volume 10.5 fl (7.4-10.4); Monocytes # 0.6 K/mm3 (0.1-1.0); Monocytes % 5.5 % (1.7-9.3); Neutrophils # 6.9 K/mm3 (1.8-7.8); Neutrophils % 68.3 % (37.0-80.0); Platelet Count 149 K/mm3 (142-424); Red Cell Distribution Width 14.5 % (11.5-17.5); White Blood Count 10.1 K/mm3 (4.8-10.8)
[2023-09-12] MEDS: FAMOTIDINE 20MG TABLET 20 MG PO (09:13)
[2023-09-12] MEDS: PHENYTOIN 100MG CAPSULE 100 MG PO ×3 (09:13→22:01)
[2023-09-12] MEDS: LORazepam 0.5MG TABLET 0.5 MG PO ×2 (09:52→22:01)
--- NOTE | 2023-09-12 10:11 | P.CONS_ITS ---
History of Present Illness History of present illness: Ms. Arredondo is a 52-year-old female current smoker greater than 30. Presented to the hospital yesterday for an elective bronchoscopy procedure eventually had new onset hypoxic respiratory failure and admitted for further evaluation and management. Patient went bronchoscopy with EBUS FNA. No transbronchial biopsies performed. No significant bleeding noted during the procedure. [facility] Disclaimer: The information contained in this section may have been updated after the patient was seen, as this information can be updated by other users. Medical History (Updated 09/12/23 @ 13:18 by Guerda Damon MD) Pneumonia Seizure disorder COPD (chronic obstructive pulmonary disease) Hilar lymphadenopathy Mediastinal lymphadenopathy Lung nodule Pulmonary emphysema Hemoptysis Surgical History History of breast surgery History of tubal ligation Family History Other COPD (chronic obstructive pulmonary disease) Cancer Diabetes Hypertension Social History (Updated 09/11/23 @ 19:49 by Collette Thurston RN) Smoking Status: Current every day smoker tobacco type: cigarettes years smoked: 40 second hand exposure: Yes alcohol intake: never substance use type: marijuana current occupational status: employed Travel in the last 8 weeks: None Review of Systems Constitutional Constitutional: Denies anorexia, Denies body ache(s), Reports fatigue and Reports lethargy Eyes Eyes: Denies eye discharge, Denies dry eyes, Denies irritation and Denies itchy eyes ENT Ears, Nose, Mouth, and Throat: Denies epistaxis, Denies facial pain, Denies lip swelling and Denies throat swelling *Cardiovascular Cardiovascular: Reports dyspnea and Reports dyspnea on exertion *Respiratory Respiratory: Reports cough, Reports dyspnea, Reports dyspnea on exertion, Denies excessive phlegm production, Denies hemoptysis, Denies pain on inspiration, Denies pain with cough and Denies wheezing *Gastrointestinal Gastrointestinal: Denies abdominal pain, Denies belching and Denies cramping *Musculoskeletal Musculoskeletal: Reports back pain, Reports myalgias and Reports other (No small joint swelling or Pain) Psychiatric Psychiatric: Denies homicidal ideation and Denies suicidal ideation Endocrine Endocrine: Reports fatigue and Denies heat intolerance Hematologic/Lymphatic Hematologic/Lymphatic: Denies easy bleeding and Denies lymphadenopathy Allergic/Immunologic Allergic/Immunologic: Denies itchy eyes, Denies lip swelling, Denies throat swelling and Denies wheezing Pulmonology Exam Inpatient Vital signs and Labs for Last 24 Hours: Temp Pulse Resp BP Pulse Ox O2 Del Method O2 Flow Rate 97.5 F L 80 23 147/76 H 97 BiPAP 30 09/12/23 08:00 09/12/23 08:00 09/12/23 08:00 09/12/23 08:00 09/12/23 08:00 09/12/23 08:00 09/12/23 06:21 FiO2 100 09/12/23 08:38 Laboratory Results - last 24 hr 09/11/23 10:08: WBC 5.1, RBC 4.85, Hgb 16.7 H, Hct 52.8 H, MCV 108.8 H, MCH 34.5 H, MCHC 31.7 L, RDW 14.7, Plt Count 141 L, MPV 10.0, Neut % (Auto) 57.4, Lymph % (Auto) 34.9, [place] % (Auto) 5.6, Eos % (Auto) 0.7, Baso % (Auto) 1.4, Neut # (Auto) 2.9, Lymph # (Auto) 1.8, [place] # (Auto) 0.3, Eos # (Auto) 0.0, Baso # (Auto) 0.1, Sodium 139, Potassium 3.9, Chloride 101, Carbon Dioxide 36 H, Anion Gap 5.9, BUN 10, Creatinine 0.70, Estimated Creat Clear 69, Estimated GFR 88, Est GFR ( Amer) 106, Glucose 94, Calcium 8.9 09/11/23 16:37: Specimen Source Right radial, O2 % 4l nc, ABG pH 7.32 L, ABG pCO2 58.8 H, ABG pO2 51.2 L, ABG HCO3 29.6 H, ABG Total CO2 31.4 H, ABG O2 Saturation 87 L*, ABG Base Excess 3.5 H, Carlos Test Acceptable, ABG Sodium 133 L , ABG Potassium 4.1, ABG Chloride 98, ABG Lactate 0.6, Arterial Blood Potassium 4.1, Arterial Blood Chloride 98 09/11/23 19:27: Phenytoin 17.3 09/11/23 23:49: Specimen Source Right radial, O2 % 30l/70% vapotherm, ABG pH 7.36, ABG pCO2 52.4 H, ABG pO2 60.8 L, ABG HCO3 28.8 H, ABG Total CO2 30.4 H, ABG O2 Saturation 91, ABG Base Excess 3.3 H, Carlos Test Acceptable 09/12/23 06:35: WBC 10.1 D, RBC 4.80, Hgb 17.7 H, Hct 50.9 H, MCV 106.1 H, MCH 36.8 H, MCHC 34.7, RDW 14.5, Plt Count 149, MPV 10.5 H, Neut % (Auto) 68.3, Lymph % (Auto) 25.4, [place] % (Auto) 5.5, Eos % (Auto) 0.3, Baso % (Auto) 0.5, Neut # (Auto) 6.9, Lymph # (Auto) 2.6, [place] # (Auto) 0.6, Eos # (Auto) 0.0, Baso # (Auto) 0.1, Sodium 137, Potassium 3.7, Chloride 99, Carbon Dioxide 32 H, Anion Gap 9.7, BUN 9, Creatinine 0.70, Estimated Creat Clear 78, Estimated GFR 88, Est GFR ( Amer) 106, Glucose 111 H, Calcium 8.9, Magnesium 2.0, Total Bilirubin 0.4, AST 39 H, ALT 21, Alkaline Phosphatase 110, Total Protein 6.8, Albumin 4.3, Globulin 2.5, Albumin/Globulin Ratio 1.7 09/12/23 07:18: Specimen Source L brachial, O2 % 80%, ABG pH 7.40, ABG pCO2 49.5 H, ABG pO2 47.8 L, ABG HCO3 30.0 H, ABG Total CO2 31.5 H, ABG O2 Saturation 84 L*, ABG Base Excess 5.2 H I & O for Labs for Last 24 Hours: Intake & Output 09/09/23 09/10/23 09/11/23 09/12/23 22:59 23:59 23:59 23:59 Intake Total 1000 / 1000 0 / 0 Output Total 0 / 0 Balance 1000 / 1000 0 / 0 Weight 117 lb 9 oz 117 lb 8.984 oz Constitutional: Present severe distress Head: Present normocephalic and atraumatic ENT: Present normal exam, normal oropharynx and mucous membranes moist Neck: Present normal inspection and full ROM Respiratory: Present respiratory distress, wheezes and diminished air movement; Absent able to speak in complete sentences Cardiac: Present S1/S2, Tachycardia and radial pulses present GI: Present soft and distention; Absent tenderness or guarding Rectal (female): Present deferred (female): Present deferred Skin: Present intact; Absent cyanosis or jaundice Neuro: Present alert, awake and oriented x 3 Extremities: Present normal inspection; Absent clubbing or cyanosis Psychiatric: Present normal affect and cooperative Meds Home Medications and Allergies Home Medications Medication Instructions Recorded Confirmed Type albuterol sulfate 90 mcg/actuation 1 puff inhalation DAILY 11/21/22 09/11/23 History aerosol inhaler (ProAir HFA) phenytoin sodium extended 100 mg 100 mg PO TID 11/21/22 09/12/23 History capsule fluticasone fur. 100 mcg-umeclid 1 inh inhalation DAILY 90 days #90 09/04/23 09/08/23 Rx 62.5 mcg-vilant 25 mcg ea inhalat.powder (Trelegy Ellipta) ipratropium 0.5 mg-albuterol 3 mg 3 ml inhalation QID PRN shortness 09/04/23 09/08/23 Rx (2.5 mg base)/3 mL nebulization of breath or wheezing 90 days #270 soln mL clonazepam 0.5 mg tablet 0.5 - 1 mg PO NEEDED PRN Anxiety 09/12/23 09/12/23 History ibuprofen 200 mg tablet 200 - 400 mg PO Q4-6H PRN Pain 09/12/23 09/12/23 History pantoprazole 40 mg tablet,delayed 40 mg PO DAILY 09/12/23 09/12/23 History release New Prescriptions to Start Prescriptions: Allergies Allergy/AdvReac Type Severity Reaction Status Date / Time Penicillins Allergy Severe Swelling Verified 09/11/23 09:47 of Lip/Tongue/Throat Results Laboratory Findings 09/12/23 06:35 09/12/23 06:35 ABG ABG pH 7.40 mmol/L (7.35-7.45) 09/12/23 07:18 ABG pCO2 49.5 mmhg (35.0-45.0) H 09/12/23 07:18 ABG pO2 47.8 mmhg (80-100) L 09/12/23 07:18 ABG O2 Saturation 84 % (90-100) L* 09/12/23 07:18 Abnormal lab findings: Abnormal Labs 09/11/23 09/11/23 09/11/23 10:08 16:37 23:49 Hgb 16.7 H Hct 52.8 H MCV 108.8 H MCH 34.5 H MCHC 31.7 L Plt Count 141 L MPV ABG pH 7.32 L ABG pCO2 58.8 H 52.4 H ABG pO2 51.2 L 60.8 L ABG HCO3 29.6 H 28.8 H ABG Total CO2 31.4 H 30.4 H ABG O2 Saturation 87 L* ABG Base Excess 3.5 H 3.3 H ABG Sodium 133 L Carbon Dioxide 36 H Glucose AST 09/12/23 09/12/23 06:35 07:18 Hgb 17.7 H Hct 50.9 H MCV 106.1 H MCH 36.8 H MCHC Plt Count MPV 10.5 H ABG pH ABG pCO2 49.5 H ABG pO2 47.8 L ABG HCO3 30.0 H ABG Total CO2 31.5 H ABG O2 Saturation 84 L* ABG Base Excess 5.2 H ABG Sodium Carbon Dioxide 32 H Glucose 111 H AST 39 H Assessment and Plan *Assessment and plan (1) Acute hypoxemic respiratory failure: Status: Acute Category: Medical Code(s): J96.01 - Acute respiratory failure with hypoxia (2) Hilar lymphadenopathy: Status: Acute Category: Medical Code(s): R59.0 - Localized enlarged lymph nodes (3) Mediastinal lymphadenopathy: Status: Acute Category: Medical Code(s): R59.0 - Localized enlarged lymph nodes (4) Lung nodule: Status: Acute Category: Medical Code(s): R91.1 - Solitary pulmonary nodule (5) Pulmonary emphysema: Status: Acute Qualifiers: Emphysema type: centrilobular Qualified Code(s): J43.2 - Centrilobular emphysema Category: Medical Code(s): J43.9 - Emphysema, unspecified (6) Pneumonia: Status: Acute Category: Medical Code(s): J18.9 - Pneumonia, unspecified organism Plan Ms. Arredondo is a 52-year-old female current smoker greater than 30. Presented to the hospital yesterday for an elective bronchoscopy procedure eventually had new onset hypoxic respiratory failure and admitted for further evaluation and management. Patient went bronchoscopy with EBUS FNA. No transbronchial biopsies performed. No significant bleeding noted during the procedure. Chest x-ray from postprocedure concerning for worsening left lung collapse. Currently complete with underlying airspace disease. No significant leukocytosis upon admission. Afebrile. On examination decreased breath sounds in left lung garner. Patient appears very weak. Unable to use incentive spirometry. Plan: -Continue positive pressure ventilation currently on CPAP of 12 and FiO2 75% will continue to wean as tolerated. Wean to nasal cannula patient experienced desaturation to 84%. Will closely monitor for the time and the need for transfer to higher level of care for possible left main bronchus stenting to relieve obstruction and improve ventilation. -Continue DuoNebs every 6 hours along with Pulmicort every 12 scheduled -Initiate levofloxacin 750 mg daily -Follow bronchoscopy results # Thank you for involving pulmonary in this patient care. Will continue to follow.
[2023-09-12] MEDS: LEVOFLOXACIN/D5W 750 MG/150 ML 750 MG/150 ML PIGGYBACK 100 MG IV (14:02)
[2023-09-12] MEDS: LORazepam 2MG/ML VIAL 0.5 MG IV (15:23)
--- NOTE | 2023-09-12 15:26 | XR_ITS ---
FINAL REPORT CLINICAL HISTORY: PNM COMPARISON: 09/12/2023 FINDINGS: SINGLE-VIEW CHEST The heart size is normal. The mediastinum is normal. There is a moderate left effusion with improved aeration in the left lung. There is no pneumothorax. IMPRESSION: Moderate left effusion with improved aeration in the left lung. Reviewed, Interpreted and Dictated by Jefferson Rojas III, MD Transcribed by Vanessa Valverde Authenticated and [facility]
--- NOTE | 2023-09-12 17:12 | P.PN_ITS ---
Subjective *Date: 09/12/23 *Time: 17:12 Interval history: alert awake, seen at bedside, on BIPAP, but able to respond apporopriately to commands Exam Data for Last 24 hours Vital signs and Labs for Last 24 Hours: Temp Pulse Resp BP Pulse Ox O2 Del Method O2 Flow Rate 97.5 F L 98 H 21 125/63 99 CPAP 30 09/12/23 16:00 09/12/23 16:00 09/12/23 14:00 09/12/23 14:00 09/12/23 14:00 09/12/23 14:54 09/12/23 08:40 FiO2 100 09/12/23 14:15 Laboratory Results - last 24 hr 09/11/23 19:27: Phenytoin 17.3 09/11/23 23:49: Specimen Source Right radial, O2 % 30l/70% vapotherm, ABG pH 7.36, ABG pCO2 52.4 H, ABG pO2 60.8 L, ABG HCO3 28.8 H, ABG Total CO2 30.4 H, ABG O2 Saturation 91, ABG Base Excess 3.3 H, Carlos Test Acceptable 09/12/23 06:35: WBC 10.1 D, RBC 4.80, Hgb 17.7 H, Hct 50.9 H, MCV 106.1 H, MCH 36.8 H, MCHC 34.7, RDW 14.5, Plt Count 149, MPV 10.5 H, Neut % (Auto) 68.3, Lymph % (Auto) 25.4, [place] % (Auto) 5.5, Eos % (Auto) 0.3, Baso % (Auto) 0.5, Neut # (Auto) 6.9, Lymph # (Auto) 2.6, [place] # (Auto) 0.6, Eos # (Auto) 0.0, Baso # (Auto) 0.1, Sodium 137, Potassium 3.7, Chloride 99, Carbon Dioxide 32 H, Anion Gap 9.7, BUN 9, Creatinine 0.70, Estimated Creat Clear 78, Estimated GFR 88, Est GFR ( Amer) 106, Glucose 111 H, Calcium 8.9, Magnesium 2.0, Total Bilirubin 0.4, AST 39 H, ALT 21, Alkaline Phosphatase 110, Total Protein 6.8, Albumin 4.3, Globulin 2.5, Albumin/Globulin Ratio 1.7 09/12/23 07:18: Specimen Source L brachial, O2 % 80%, ABG pH 7.40, ABG pCO2 49.5 H, ABG pO2 47.8 L, ABG HCO3 30.0 H, ABG Total CO2 31.5 H, ABG O2 Saturation 84 L*, ABG Base Excess 5.2 H I & O for Last 24 hours: Intake & Output 09/09/23 09/10/23 09/11/23 09/12/23 22:59 23:59 23:59 23:59 Intake Total 1000 / 1000 0 / 0 Output Total 0 / 0 300 / 300 Balance 1000 / 1000 -300 / -300 Weight 53.325 kg 53.325 kg Constitutional Comments: on bipap, alert awake *Routine HEENT Exam Head: Present normocephalic Eye: Present EOMI and PERRL ENT: Present mucous membranes moist *Routine Neck Exam Neck: Present supple; Absent lymphadenopathy *Routine Respiratory Exam Respiratory: Present distant breath sounds and diminished air movement *Routine Cardiovascular Exam Cardiovascular: Present RRR *Routine Abdominal Exam Abdominal: Present soft and normoactive bowel sounds; Absent tenderness *Routine Extremities Exam Extremities: Absent cyanosis, clubbing or edema *Routine Skin Exam Skin: Present warm; Absent rash *Routine Neurological Exam Neurological: Present alert and oriented X3 Assessment and Plan *Assessment and plan (1) Acute hypoxemic respiratory failure: Status: Acute Category: Medical Code(s): J96.01 - Acute respiratory failure with hypoxia (2) Mediastinal lymphadenopathy: Status: Acute Category: Medical Code(s): R59.0 - Localized enlarged lymph nodes (3) Hilar lymphadenopathy: Status: Acute Category: Medical Code(s): R59.0 - Localized enlarged lymph nodes (4) Seizure disorder: Status: Acute Category: Medical Code(s): G40.909 - Epilepsy, unspecified, not intractable, without status epilepticus (5) Pulmonary emphysema: Status: Acute Qualifiers: Emphysema type: centrilobular Qualified Code(s): J43.2 - Centrilobular emphysema Category: Medical Code(s): J43.9 - Emphysema, unspecified Plan Patient is a 52-year-old female who presents today for hospital due to shortness of breath. Patient was started on BiPAP Assessment and plan Acute hypoxic respiratory failure COPD exacerbation Left lung collapse Continue BiPAP Continue DuoNebs Continue levofloxacin Status post bronchoscopy Pulmonary following-appreciate help Monitor blood gases Continue trilogy Anxiety -Continue Klonopin Seizure disorder Continue phenytoin Tobacco use -Continue nicotine patch DVT prophylaxis-heparin
--- NOTE | 2023-09-12 17:20 | PC.NURSE ---
Left side of lungs diminished, right side clear. Patient able to tolerate cpap when given ativan for anxiety. Chest pain reported by patient, relieved with anxiety medication. Patient able to ambulate to bedside but still feels very weak. VS stable but patient unable to tolerate vapotherm or nasal cannula.
[2023-09-13] VITALS (16 sets, daily range): BP systolic 117–151; BP diastolic 64–76; PULSE 77–125; RESP 16–30; TEMP 36.6–37.2; O2SAT 82–94; BMI 19.8
[2023-09-13] MEDS: clonazePAM 1MG TABLET 1 MG PO ×2 (00:37→20:37)
--- NOTE | 2023-09-13 01:15 | PC.NURSE ---
@ 0037 THIS PT NOTIFIED THIS RN IF THE NEW MED, KLONOPIN, DOES NOT HELP HER GET ANY SLEEP THAT SHE WILL BE WALKING OUT OF THE HOSPITAL SO SHE CAN GO HOME AND SLEEP. THIS RN HAS EDUCATED PT OVER AND OVER FOR 2 PM SHIFTS NOW THAT SHE IS NOT OXYGENATING WELL, BUT PT CONTINUES TO BE RESISTIVE OF CARE AND PLAN OF CARE FOR HER. @0120 PT IS STATING SHE IS UNCOMFORTABLE AND IS REFUSING TO WEAR CPAP AT THIS TIME, BUT DID AGREE TO WEAR OXYGEN; THIS RN NOTIFIED RT TO COME TO BEDSIDE FOR NC / VAPOTHERM SET UP
[2023-09-13] MEDS: IPRATROPIUM/ALBUTEROL 3 ML NEB IH (06:27)
[2023-09-13] MEDS: BUDESONIDE 0.5MG/2ML NEB 0.5 MG IH (06:27)
--- NOTE | 2023-09-13 07:43 | PC.NURSE ---
pt got up to bsc and back to bed, pt's oxygen saturations 80-83% on 6LNC, asked pt if could put vapotherm back on, pt refused to put vapotherm on and told this RN it takes a minute to get back up , family at bedside, call light within reach, pt eating breakfast
[2023-09-13] MEDS: PHENYTOIN 100MG CAPSULE 100 MG PO ×3 (08:34→20:37)
[2023-09-13] MEDS: LORazepam 1MG TABLET 1 MG PO ×2 (08:35→14:36)
[2023-09-13] MEDS: FAMOTIDINE 20MG TABLET 20 MG PO (08:35)
--- NOTE | 2023-09-13 09:43 | XR_ITS ---
FINAL REPORT CLINICAL HISTORY: Hypoxia COMPARISON: 09/12/2023 FINDINGS: A single portable view of the chest was obtained. The heart size and pulmonary vascularity are within normal limits. The mediastinum is within normal limits. There is a moderate left pleural effusion. Worsening left lung opacities are consistent with worsening pneumonia. The bony thorax is intact. IMPRESSION: Worsening pneumonia. Moderate left pleural effusion. Reviewed, Interpreted and Dictated by Jefferson Rojas III, MD Transcribed by Jo Ann Shirley Authenticated and [facility]
--- NOTE | 2023-09-13 09:43 | EXP.PULM.PN ---
Subjective *Date: 09/13/23 *Time: 12:17 Interval history: No acute respiratory events overnight. Patient admits improving respiratory status. Pulmonology Exam Inpatient Vital signs and Labs for Last 24 Hours: Temp Pulse Resp BP Pulse Ox O2 Del Method O2 Flow Rate 97.8 F 106 H 18 136/74 94 L Nasal Cannula 6 09/13/23 07:44 09/13/23 06:27 09/13/23 06:00 09/13/23 06:00 09/13/23 06:27 09/13/23 07:00 09/13/23 07:00 FiO2 100 09/12/23 19:14 I & O for Labs for Last 24 Hours: Intake & Output 09/10/23 09/11/23 09/12/23 09/13/23 23:59 23:59 23:59 23:59 Intake Total 1000 / 1000 250 / 250 510 / 510 Output Total 0 / 0 300 / 300 0 / 0 Balance 1000 / 1000 -50 / -50 510 / 510 Weight 117 lb 9 oz 117 lb 8.984 oz 104 lb 11.2 oz Constitutional: Present severe distress Head: Present normocephalic and atraumatic ENT: Present normal exam, normal oropharynx and mucous membranes moist Neck: Present normal inspection and full ROM Respiratory: Present respiratory distress, wheezes and diminished air movement; Absent able to speak in complete sentences Cardiac: Present S1/S2, Tachycardia and radial pulses present GI: Present soft and distention; Absent tenderness or guarding Rectal (female): Present deferred (female): Present deferred Skin: Present intact; Absent cyanosis or jaundice Neuro: Present alert, awake and oriented x 3 Extremities: Present normal inspection; Absent clubbing or cyanosis Psychiatric: Present normal affect and cooperative Assessment and Plan *Assessment and plan (1) Acute hypoxemic respiratory failure: Status: Acute Category: Medical Code(s): J96.01 - Acute respiratory failure with hypoxia (2) Hilar lymphadenopathy: Status: Acute Category: Medical Code(s): R59.0 - Localized enlarged lymph nodes (3) Mediastinal lymphadenopathy: Status: Acute Category: Medical Code(s): R59.0 - Localized enlarged lymph nodes (4) Lung nodule: Status: Acute Category: Medical Code(s): R91.1 - Solitary pulmonary nodule (5) Pulmonary emphysema: Status: Acute Qualifiers: Emphysema type: centrilobular Qualified Code(s): J43.2 - Centrilobular emphysema Category: Medical Code(s): J43.9 - Emphysema, unspecified (6) Pneumonia: Status: Acute Category: Medical Code(s): J18.9 - Pneumonia, unspecified organism Plan Ms. Arredondo is a 52-year-old female current smoker greater than 30. Presented to the hospital yesterday for an elective bronchoscopy procedure eventually had new onset hypoxic respiratory failure and admitted for further evaluation and management. Patient went bronchoscopy with EBUS FNA. No transbronchial biopsies performed. No significant bleeding noted during the procedure. Chest x-ray from postprocedure concerning for worsening left lung collapse. Currently complete with underlying airspace disease. No significant leukocytosis upon admission. Afebrile. On initial examination decreased breath sounds in left lung garner. Patient appears very weak. Unable to use incentive spirometry. Interval update: Chest x-ray on positive pressure ventilation to significantly improved aeration from yesterday and from this morning. Continued to be needing oxygen supplementation. Patient has been refusing positive pressure ventilation at this point of time. On nasal cannula oxygen supplementation at 6 L, saturating 88 to 90% this morning. Discussed extensively regarding patient's need to be in the hospital ending clinical improvement Plan: -Incentive spirometry and flutter valve. -Nasal cannula oxygen supplementation to maintain O2 saturation goal of 90 to 95% -Continue DuoNebs every 6 hours along with Pulmicort every 12 scheduled -Continue levofloxacin 750 mg daily. Sputum culture induction today -Follow final bronchoscopy results # Thank you for involving pulmonary in this patient care. Will continue to follow.
--- NOTE | 2023-09-13 11:26 | PC.NURSE ---
PATIENT REFUSED BREATHING TREATMENT
[2023-09-13] MEDS: FLUTICASONE/UMECLIDIN/VILANTER 100/62.5/25MCG INHALER 1 PUFF IH (13:16)
[2023-09-13] MEDS: LEVOFLOXACIN/D5W 750 MG/150 ML 750 MG/150 ML PIGGYBACK 100 MG IV (14:36)
--- NOTE | 2023-09-13 17:08 | EXP.PN ---
Subjective *Date: 09/13/23 *Time: 17:08 Interval history: alert awake, seen at bedside, was on vapotherm, per RN patient has been refusing Vapotherm Exam Data for Last 24 hours Vital signs and Labs for Last 24 Hours: Temp Pulse Resp BP Pulse Ox O2 Del Method O2 Flow Rate 98.4 F 105 H 30 H 125/73 86 L Nasal Cannula 6 09/13/23 16:00 09/13/23 12:00 09/13/23 10:00 09/13/23 10:00 09/13/23 10:00 09/13/23 11:00 09/13/23 11:00 FiO2 100 09/12/23 19:14 I & O for Last 24 hours: Intake & Output 09/10/23 09/11/23 09/12/23 09/13/23 23:59 23:59 23:59 23:59 Intake Total 1000 / 1000 250 / 250 750 / 750 Output Total 0 / 0 300 / 300 0 / 0 Balance 1000 / 1000 -50 / -50 750 / 750 Weight 53.325 kg 53.325 kg 47.491 kg Constitutional Comments: alert awake, on vaoptherm *Routine HEENT Exam Head: Present normocephalic Eye: Present EOMI and PERRL ENT: Present mucous membranes moist *Routine Neck Exam Neck: Present supple; Absent lymphadenopathy *Routine Respiratory Exam Respiratory: Present distant breath sounds and diminished air movement *Routine Cardiovascular Exam Cardiovascular: Present RRR *Routine Abdominal Exam Abdominal: Present soft and normoactive bowel sounds; Absent tenderness *Routine Extremities Exam Extremities: Absent cyanosis, clubbing or edema *Routine Skin Exam Skin: Present warm; Absent rash *Routine Neurological Exam Neurological: Present alert and oriented X3 Assessment and Plan *Assessment and plan (1) Acute hypoxemic respiratory failure: Status: Acute Category: Medical Code(s): J96.01 - Acute respiratory failure with hypoxia (2) Mediastinal lymphadenopathy: Status: Acute Category: Medical Code(s): R59.0 - Localized enlarged lymph nodes (3) Hilar lymphadenopathy: Status: Acute Category: Medical Code(s): R59.0 - Localized enlarged lymph nodes (4) Seizure disorder: Status: Acute Category: Medical Code(s): G40.909 - Epilepsy, unspecified, not intractable, without status epilepticus (5) Pulmonary emphysema: Status: Acute Qualifiers: Emphysema type: centrilobular Qualified Code(s): J43.2 - Centrilobular emphysema Category: Medical Code(s): J43.9 - Emphysema, unspecified Plan Patient is a 52-year-old female who presents today for hospital due to shortness of breath. Patient was started on BiPAP Assessment and plan Acute hypoxic respiratory failure COPD exacerbation Left lung collapse Continue BiPAP Continue DuoNebs Continue levofloxacin Status post bronchoscopy Pulmonary following-appreciate help Monitor blood gases Continue trilogy Anxiety -Continue Klonopin Seizure disorder Continue phenytoin Tobacco use -Continue nicotine patch DVT prophylaxis-heparin continue to wean down O2 needs, continue IV abx, DC 1-2 days
[2023-09-13] MEDS: ONDANSETRON 4MG/2ML VIAL 4 MG IV (18:29)
[2023-09-14] VITALS (10 sets, daily range): BP systolic 104–135; BP diastolic 53–77; PULSE 95–110; RESP 15–25; TEMP 36.8–37.3; O2SAT 82–94; BMI 19.6
[2023-09-14] MEDS: IPRATROPIUM/ALBUTEROL 3 ML NEB IH (05:46)
[2023-09-14] MEDS: FLUTICASONE/UMECLIDIN/VILANTER 100/62.5/25MCG INHALER 1 PUFF IH (05:46)
--- NOTE | 2023-09-14 06:12 | PC.NURSE ---
TRANSFER OF CARE @ 0600 TO JOCELYNE, RN EQ, C PROGRAMMER DOWNGRADED PT TO M/S TELE FROM [place] @ [id number]
[2023-09-14] MEDS: FAMOTIDINE 20MG TABLET 20 MG PO ×2 (07:50→20:44)
[2023-09-14] MEDS: PHENYTOIN 100MG CAPSULE 100 MG PO ×3 (07:50→20:44)
[2023-09-14] MEDS: LORazepam 1MG TABLET 1 MG PO ×3 (07:50→19:38)
--- NOTE | 2023-09-14 07:51 | PC.NURSE ---
Resp called for breathing treatment and states she was just given one at around 0530 this am. They are aware her sats are now 82% on 02 on 6L NC.
[2023-09-14 09:06] LABS: Basophils # 0.1 K/mm3 (0-0.2); Basophils % 0.6 % (0.1-2.0); Eosinophils # 0.1 K/mm3 (0.0-0.4); Eosinophils % 0.7 % (0.1-12.0); Hematocrit 48.5 % (37.0-47.0); Hemoglobin 16.1 g/dL (12.2-16.2); Lymphocytes # 1.5 K/mm3 (0.7-4.5); Lymphocytes % 19.4 % (10-50); Mean Corpuscular HGB Conc 33.2 g/dL (31.8-35.4); Mean Corpuscular Hemoglobin 35.2 pg (27.0-31.2); Mean Corpuscular Volume 105.9 fl (81-99); Mean Platelet Volume 9.3 fl (7.4-10.4); Monocytes # 0.4 K/mm3 (0.1-1.0); Monocytes % 5.8 % (1.7-9.3); Neutrophils # 5.5 K/mm3 (1.8-7.8); Neutrophils % 73.5 % (37.0-80.0); Platelet Count 130 K/mm3 (142-424); Red Blood Count 4.58 M/mm3 (4.20-5.40); Red Cell Distribution Width 14.3 % (11.5-17.5); White Blood Count 7.5 K/mm3 (4.8-10.8)
[2023-09-14 09:17] LABS: Chloride 97 mmol/L (98-107); Potassium 3.3 mmoL/L (3.5-5.1); Sodium 136 mmol/L (136-145)
[2023-09-14 09:20] LABS: Anion Gap 5.3 mEq/L (5-15); Blood Urea Nitrogen 9 mg/dl (7-17); Calcium 8.8 mg/dl (8.4-10.2); Carbon Dioxide 37 mmol/L (22.0-30.0); Creatinine Clearance Estimated 61 mL/min (50-200); Estimated Glomerular Filt Rate 75 ml/min (>60); GFR (African American) 91 ML/MIN (>60); Glucose 160 mg/dl (74-100)
--- NOTE | 2023-09-14 09:44 | XR_ITS ---
FINAL REPORT CLINICAL HISTORY: Hypoxia COMPARISON: 09/13/2023 FINDINGS: A single portable view of the chest was obtained. The heart size and pulmonary vascularity are within normal limits. The mediastinum is within normal limits. There is significantly improved aeration of the left lung with persistent mild opacities. There is a small left pleural effusion. The bony thorax is intact. IMPRESSION: Significantly improved aeration left lung with persistent mild opacities. Small left pleural effusion. Reviewed, Interpreted and Dictated by Jefferson Rojas III, MD Transcribed by Jo Ann Shirley Authenticated and [facility]
--- NOTE | 2023-09-14 09:44 | EXP.PULM.PN ---
Subjective *Date: 09/14/23 *Time: 12:42 Interval history: Continued episodes of hypoxia while on nasal cannula. Patient adamant and refusing to be on noninvasive ventilatory therapy. She also would like to go home Pulmonology Exam Inpatient Vital signs and Labs for Last 24 Hours: Temp Pulse Resp BP Pulse Ox O2 Del Method O2 Flow Rate 98.7 F 109 H 19 131/74 82 L Nasal Cannula 6 09/14/23 07:54 09/14/23 07:54 09/14/23 07:54 09/14/23 07:54 09/14/23 07:56 09/14/23 07:59 09/14/23 07:59 FiO2 100 09/12/23 19:14 Laboratory Results - last 24 hr 09/14/23 08:25: WBC 7.5 D, RBC 4.58, Hgb 16.1, Hct 48.5 H, MCV 105.9 H, MCH 35.2 H, MCHC 33.2, RDW 14.3, Plt Count 130 L, MPV 9.3, Neut % (Auto) 73.5, Lymph % (Auto) 19.4, [place] % (Auto) 5.8, Eos % (Auto) 0.7, Baso % (Auto) 0.6, Neut # (Auto) 5.5, Lymph # (Auto) 1.5, [place] # (Auto) 0.4, Eos # (Auto) 0.1, Baso # (Auto) 0.1, Sodium 136, Potassium 3.3 L, Chloride 97 L, Carbon Dioxide 37 H, Anion Gap 5.3, BUN 9, Creatinine 0.80, Estimated Creat Clear 61, Estimated GFR 75, Est GFR ( Amer) 91, Glucose 160 H, Calcium 8.8 I & O for Labs for Last 24 Hours: Intake & Output 09/11/23 09/12/23 09/13/23 09/14/23 23:59 23:59 23:59 23:59 Intake Total 1000 / 1000 250 / 250 1020 / 1020 240 / 240 Output Total 0 / 0 300 / 300 0 / 0 0 / 0 Balance 1000 / 1000 -50 / -50 1020 / 1020 240 / 240 Weight 117 lb 9 oz 117 lb 8.984 oz 104 lb 11.2 oz 104 lb 1.6 oz Constitutional: Present severe distress Head: Present normocephalic and atraumatic ENT: Present normal exam, normal oropharynx and mucous membranes moist Neck: Present normal inspection and full ROM Respiratory: Present respiratory distress, wheezes, diminished air movement and able to speak in complete sentences Comment:: Improving aeration in the left lung garner Cardiac: Present S1/S2, Tachycardia and radial pulses present GI: Present soft and distention; Absent tenderness or guarding Rectal (female): Present deferred (female): Present deferred Skin: Present intact; Absent cyanosis or jaundice Neuro: Present alert, awake and oriented x 3 Extremities: Present normal inspection; Absent clubbing or cyanosis Psychiatric: Present normal affect and cooperative Assessment and Plan *Assessment and plan (1) Acute hypoxemic respiratory failure: Status: Acute Category: Medical Code(s): J96.01 - Acute respiratory failure with hypoxia (2) Hilar lymphadenopathy: Status: Acute Category: Medical Code(s): R59.0 - Localized enlarged lymph nodes (3) Mediastinal lymphadenopathy: Status: Acute Category: Medical Code(s): R59.0 - Localized enlarged lymph nodes (4) Lung nodule: Status: Acute Category: Medical Code(s): R91.1 - Solitary pulmonary nodule (5) Pulmonary emphysema: Status: Acute Qualifiers: Emphysema type: centrilobular Qualified Code(s): J43.2 - Centrilobular emphysema Category: Medical Code(s): J43.9 - Emphysema, unspecified (6) Pneumonia: Status: Acute Category: Medical Code(s): J18.9 - Pneumonia, unspecified organism Plan Ms. Arredondo is a 52-year-old female current smoker greater than 30. Presented to the hospital yesterday for an elective bronchoscopy procedure eventually had new onset hypoxic respiratory failure and admitted for further evaluation and management. Patient went bronchoscopy with EBUS FNA. No transbronchial biopsies performed. No significant bleeding noted during the procedure. Chest x-ray from postprocedure concerning for worsening left lung collapse. Currently complete with underlying airspace disease. No significant leukocytosis upon admission. Afebrile. On initial examination decreased breath sounds in left lung garner. Patient appears very weak. Unable to use incentive spirometry. Interval update: Patient off noninvasive ventilation since last 24 hours and repeat chest x-ray continues to show improved aeration however no significant improvement in the noted hypoxia episodes concerning for lymphangitic spread / CT PE. The patient had recent CT PE negative this is very concerning. Will repeat a CT PE protocol. Patient has been refusing positive pressure ventilation at this point of time. Continue to remain on nasal cannula, suboptimal saturations as per chart review. Afebrile. Hemodynamically stable. Improving leukocytosis. Continue to receive levofloxacin. Sputum stain and cultures pending. Plan: -Follow with CT PE protocol and if negative will consider discharging patient on 8 L nasal cannula referral to for possible stenting as an outpatient basis -Incentive spirometry and flutter valve. -Continue DuoNebs every 6 hours along with Pulmicort every 12 scheduled -Continue levofloxacin 750 mg daily x 7 days. Follow-up with sputum culture results -Follow final bronchoscopy results # Thank you for involving pulmonary in this patient care. Will continue to follow.
--- NOTE | 2023-09-14 12:23 | CT_ITS ---
FINAL REPORT CLINICAL HISTORY: Hypoxia COMPARISON: 09/05/2023 FINDINGS: Thin section axial CT images of the chest were obtained with contrast. 3D reformatted images were also obtained. This study was performed with techniques to keep radiation doses as low as reasonably achievable (ALARA). Individualized dose reduction techniques using automated exposure control or adjustment of mA and/or kV according to the patient's size were employed. There is no evidence of pulmonary embolism. 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 There is presumed mucous filling the bronchus intermedius and probable right lower lobe segmental bronchi. There is presumed mucous plugging in several left lower lobe bronchi. Mild pulmonary scarring is worse. There is moderate emphysema. There is inferior lingular and left lower lobe atelectasis. There are multifocal right lower lobe opacities consistent with pneumonia. There is a 15 mm nodule in the superior segment of the left lower lobe worrisome for neoplasm. New small left effusion is identified. Limited images of the upper abdomen are unremarkable. IMPRESSION: No evidence of pulmonary embolism. 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 Worsening left lung atelectasis and small left effusion. New bilateral lower lobe mucous plugging and right lower lobe pneumonia. Reviewed, Interpreted and Dictated by Jefferson Rojas III, MD Transcribed by Vanessa Valverde Authenticated and . [facility]
[2023-09-14] MEDS: LEVOFLOXACIN/D5W 750 MG/150 ML 750 MG/150 ML PIGGYBACK 100 MG IV (13:10)
[2023-09-14] MEDS: ACETAMINOPHEN 325MG TAB 650 MG PO (13:10)
[2023-09-14] MEDS: IOPAMIDOL-370 (76%);100ML BOTTLE 70 ML IV (13:13)
[2023-09-14] MEDS: SODIUM CHLORIDE 0.9% 10ML SYR (RAD ONLY) 10 ML IV ×2 (13:13→20:28)
[2023-09-14] MEDS: 0.9 % SODIUM CHLORIDE 50 ML VIAL IV (13:13)
[2023-09-14] MEDS: ONDANSETRON 4MG/2ML VIAL 4 MG IV (13:15)
--- NOTE | 2023-09-14 14:27 | EXP.PN ---
Subjective *Date: 09/14/23 *Time: 14:27 Interval history: Patient is seen at bedside, on 6L NC, having wheezing, denied CP, N/V Exam Data for Last 24 hours Vital signs and Labs for Last 24 Hours: Temp Pulse Resp BP Pulse Ox O2 Del Method O2 Flow Rate 98.3 F 95 H 17 117/72 94 L Nasal Cannula 6 09/14/23 11:25 09/14/23 11:25 09/14/23 11:25 09/14/23 11:25 09/14/23 11:25 09/14/23 13:59 09/14/23 13:59 FiO2 100 09/12/23 19:14 Laboratory Results - last 24 hr 09/14/23 08:25: WBC 7.5 D, RBC 4.58, Hgb 16.1, Hct 48.5 H, MCV 105.9 H, MCH 35.2 H, MCHC 33.2, RDW 14.3, Plt Count 130 L, MPV 9.3, Neut % (Auto) 73.5, Lymph % (Auto) 19.4, [place] % (Auto) 5.8, Eos % (Auto) 0.7, Baso % (Auto) 0.6, Neut # (Auto) 5.5, Lymph # (Auto) 1.5, [place] # (Auto) 0.4, Eos # (Auto) 0.1, Baso # (Auto) 0.1, Sodium 136, Potassium 3.3 L, Chloride 97 L, Carbon Dioxide 37 H, Anion Gap 5.3, BUN 9, Creatinine 0.80, Estimated Creat Clear 61, Estimated GFR 75, Est GFR ( Amer) 91, Glucose 160 H, Calcium 8.8 I & O for Last 24 hours: Intake & Output 09/11/23 09/12/23 09/13/23 09/14/23 23:59 23:59 23:59 23:59 Intake Total 1000 / 1000 250 / 250 1020 / 1020 710 / 710 Output Total 0 / 0 300 / 300 0 / 0 0 / 0 Balance 1000 / 1000 -50 / -50 1020 / 1020 710 / 710 Weight 53.325 kg 53.325 kg 47.491 kg 47.2 kg Constitutional Constitutional: no acute distress *Routine HEENT Exam Head: Present normocephalic Eye: Present EOMI and PERRL ENT: Present mucous membranes moist *Routine Neck Exam Neck: Present supple; Absent lymphadenopathy *Routine Respiratory Exam Respiratory: Present wheezes *Routine Cardiovascular Exam Cardiovascular: Present RRR *Routine Abdominal Exam Abdominal: Present soft and normoactive bowel sounds; Absent tenderness *Routine Extremities Exam Extremities: Absent cyanosis, clubbing or edema *Routine Skin Exam Skin: Present warm; Absent rash *Routine Neurological Exam Neurological: Present alert and oriented X3 Assessment and Plan *Assessment and plan (1) Acute hypoxemic respiratory failure: Status: Acute Category: Medical Code(s): J96.01 - Acute respiratory failure with hypoxia (2) Mediastinal lymphadenopathy: Status: Acute Category: Medical Code(s): R59.0 - Localized enlarged lymph nodes (3) Hilar lymphadenopathy: Status: Acute Category: Medical Code(s): R59.0 - Localized enlarged lymph nodes (4) Seizure disorder: Status: Acute Category: Medical Code(s): G40.909 - Epilepsy, unspecified, not intractable, without status epilepticus (5) Pulmonary emphysema: Status: Acute Qualifiers: Emphysema type: centrilobular Qualified Code(s): J43.2 - Centrilobular emphysema Category: Medical Code(s): J43.9 - Emphysema, unspecified Plan Patient is a 52-year-old female who presents today for hospital due to shortness of breath. Patient was started on BiPAP, now weaned off Assessment and plan Acute hypoxic respiratory failure COPD exacerbation Left lung collapse weaned off of BiPAP Continue DuoNebs Continue levofloxacin Status post bronchoscopy Pulmonary following-appreciate help Continue trelogy Anxiety Continue Klonopin Seizure disorder Continue phenytoin Tobacco use -Continue nicotine patch DVT prophylaxis-heparin continue to wean down O2 needs, continue IV abx, follow up on CTA chest, likely DC today evening or tomorrow
[2023-09-14] MEDS: LORazepam 2MG/ML VIAL 1 MG IV (17:31)
--- NOTE | 2023-09-14 17:45 | PC.NURSE ---
Pt. is aox 4, vss, on NC, extra anxiety med given iv.
--- NOTE | 2023-09-14 17:50 | MR_ITS ---
PROCEDURE INFORMATION: Exam: MR Head Without and With Contrast Exam date and time: 09/14/2023 7:27 PM Age: 52 years old Clinical indication: Condition or disease; Cancer; Metastatic or secondary malignancy of brain; Additional info: Malignancy for mets TECHNIQUE: Imaging protocol: Magnetic resonance imaging of the head without and with contrast. Contrast material: PROHANCE; Contrast volume: 9 ml; Contrast route: IV; COMPARISON: CT HEAD/BRAIN WO CON 11/21/2022 11:13 PM FINDINGS: There is patient motion. Major vascular flow voids at the skull base are preserved. No extra-axial fluid collection. No obstructive hydrocephalus. There is peripherally enhancing mass at the left thalamus measuring 1.4 x 1.3 cm with mild adjacent edema. Peripherally enhancing portion demonstrates increased diffusion-weighted signal. There is mass effect with partial effacement of the 3rd ventricle. No diffusion restriction to indicate acute ischemic infarct. No other enhancing lesion. Mild nonspecific white matter gliosis, probable chronic microvascular ischemia. Minimal paranasal sinus disease. Bilateral mastoid effusions. IMPRESSION: Peripherally enhancing mass at the left thalamus measuring 1.4 x 1.3 cm with mild edema and mass effect as above. Consider cystic/necrotic neoplasia versus less likely abscess, clinical correlation and follow-up recommended.
[2023-09-14] MEDS: GADOTERIDOL INJ 17ML SYRINGE 9 ML IV (20:28)
--- NOTE | 2023-09-14 20:30 | PC.NURSE ---
pt arrived to floor from mri at this time
[2023-09-14] MEDS: PANTOPRAZOLE 40MG TABLET 40 MG PO (20:44)
[2023-09-14] MEDS: clonazePAM 1MG TABLET 1 MG PO (21:54)
--- NOTE | 2023-09-14 23:11 | PC.NURSE ---
patient wants to leave ama. dr german aware .
--- NOTE | 2023-09-14 23:34 | PC.NURSE ---
patient signed out AMA. went home by personal vehicle.
--- NOTE | 2023-09-15 00:33 | EXP.DC.SUM ---
General Admission date:: 09/11/23 Discharge date: 09/14/23 HPI HPI HPI: 52-year-old female continues to smoke. Has an extensive smoking history with over 30 pack years. Family history of lung cancer and pulmonary disease. Presented to pulmonology clinic a week ago for eval after having an abnormal CT showing lung nodules, lymphadenopathy, lung mass. Mass shows compressive effect on her left mainstem bronchus. Reporting some scant hemoptysis. Brought in electively for bronchoscopy to evaluate lung mass. Tolerated procedure well but after her procedure she developed hypoxia after extubation. Complaining of chest discomfort after biopsy and bronchoscopy. No nausea or vomiting. Alert and oriented but still fatigued from anesthesia. Afebrile. Medicine consulted to evaluate for admission. Patient necessitating 4 to 6 L oxygen to maintain appropriate sats. Reports she wears oxygen as needed at home, 2 L. Wears it rarely. Also reports history of seizures, anxiety, and COPD. Feeling more anxious since diagnosis. Recently started on Klonopin. Hospital Course Hospital Course Hospital Course: Ms. Arredondo is a 52-year-old female current smoker greater than 30. Presented to the hospital initially for an elective bronchoscopy on Monday. She developed new onset hypoxemic respiratory failure and was admitted to medicine for further management. Pulmonology was consulted to assist with care. EBUS with FNA performed during bronchoscopy. No significant bleeding noted. Increased oxygen requirement necessitating 6 L during admission. Chest x-ray from postprocedure concerning for worsening left lung collapse with underlying airspace disease. No significant leukocytosis upon admission. Afebrile. On initial examination decreased breath sounds in left lung garner. Patient appears very weak. Unable to use incentive spirometry. Showed gradual improvement during admission but remained on [address] PE was negative for blood clot. Patient refusing BiPAP during admission. Continue to monitor and was being treated with levofloxacin for plan of 7 days. Sputum culture still pending. Getting breathing treatments. Bronchoscopy results still pending. MRI of head was obtained due to 3 weeks of headache. Patient was noted to have 1.5 cm lesion in the mid brain in the left thalamus. Ring-enhancing. Concern for metastasis with surrounding edema. Patient elected to leave AMA. Extensive discussion at bedside about risk to life and limb, risk of progressing disease without treatment. Patient had been placed on wait list at for transfer, stated she did not want to go to and just wanted to go home and be with family. Stated she understood that if she left she would not be getting treatment. Has oxygen at home. Patient very clear on her desire to leave. Strongly encouraged her to stay for further management. Stated she was in God's hands and wanted to go home. Ultimately left AMA. Exam Data for Last 24 hours Vital signs and Labs for Last 24 Hours: Temp Pulse Resp BP Pulse Ox O2 Del Method O2 Flow Rate 99.2 F 110 H 22 129/77 92 L Nasal Cannula 6 09/14/23 20:00 09/14/23 20:00 09/14/23 20:00 09/14/23 20:00 09/14/23 20:00 09/14/23 23:00 09/14/23 23:00 FiO2 100 09/12/23 19:14 Laboratory Results - last 24 hr 09/14/23 08:25: WBC 7.5 D, RBC 4.58, Hgb 16.1, Hct 48.5 H, MCV 105.9 H, MCH 35.2 H, MCHC 33.2, RDW 14.3, Plt Count 130 L, MPV 9.3, Neut % (Auto) 73.5, Lymph % (Auto) 19.4, [place] % (Auto) 5.8, Eos % (Auto) 0.7, Baso % (Auto) 0.6, Neut # (Auto) 5.5, Lymph # (Auto) 1.5, [place] # (Auto) 0.4, Eos # (Auto) 0.1, Baso # (Auto) 0.1, Sodium 136, Potassium 3.3 L, Chloride 97 L, Carbon Dioxide 37 H, Anion Gap 5.3, BUN 9, Creatinine 0.80, Estimated Creat Clear 61, Estimated GFR 75, Est GFR ( Amer) 91, Glucose 160 H, Calcium 8.8 I & O for Last 24 hours: Intake & Output 09/12/23 09/13/23 09/14/23 09/15/23 23:59 23:59 23:59 23:59 Intake Total 250 / 250 1020 / 1020 1100 / 1100 Output Total 300 / 300 0 / 0 0 / 0 Balance -50 / -50 1020 / 1020 1100 / 1100 Weight 53.325 kg 47.491 kg 47.2 kg Constitutional Constitutional: thin and chronically ill appearing *Routine HEENT Exam Head: Present normocephalic and atraumatic ENT: Present mucous membranes moist *Routine Respiratory Exam Respiratory: Present prolonged expiratory phase, rhonchi, wheezes and crackles *Routine Cardiovascular Exam Cardiovascular: Present RRR *Routine Abdominal Exam Abdominal: Present soft *Routine Neurological Exam Neurological: Present alert, oriented X3 and moving all extremities; Absent altered mental status Routine Psychiatric Exam Psychiatric: Absent good insight or good judgment Results Data Completed and Pending Labs on day of discharge: Labs from last 24 hours 09/14/23 08:25 WBC 7.5 D RBC 4.58 Hgb 16.1 Hct 48.5 H MCV 105.9 H MCH 35.2 H MCHC 33.2 RDW 14.3 Plt Count 130 L MPV 9.3 Neut % (Auto) 73.5 Lymph % (Auto) 19.4 [place] % (Auto) 5.8 Eos % (Auto) 0.7 Baso % (Auto) 0.6 Neut # (Auto) 5.5 Lymph # (Auto) 1.5 [place] # (Auto) 0.4 Eos # (Auto) 0.1 Baso # (Auto) 0.1 Sodium 136 Potassium 3.3 L Chloride 97 L Carbon Dioxide 37 H Anion Gap 5.3 BUN 9 Creatinine 0.80 Estimated Creat Clear 61 Estimated GFR 75 Est GFR ( Amer) 91 Glucose 160 H Calcium 8.8 DS: Diagnosis Discharge Diagnosis (1) Acute hypoxemic respiratory failure: Status: Acute Code(s): J96.01 - Acute respiratory failure with hypoxia (2) Mediastinal lymphadenopathy: Status: Acute Code(s): R59.0 - Localized enlarged lymph nodes (3) Hilar lymphadenopathy: Status: Acute Code(s): R59.0 - Localized enlarged lymph nodes (4) Seizure disorder: Status: Acute Code(s): G40.909 - Epilepsy, unspecified, not intractable, without status epilepticus (5) Pulmonary emphysema: Status: Acute Code(s): J43.9 - Emphysema, unspecified Qualifiers: Emphysema type: centrilobular Qualified Code(s): J43.2 - Centrilobular emphysema Meds Home Medications and Allergies Home Medications Medication Instructions Recorded Confirmed Type albuterol sulfate 90 mcg/actuation 1 puff inhalation DAILY 11/21/22 09/11/23 History aerosol inhaler (ProAir HFA) phenytoin sodium extended 100 mg 100 mg PO TID 11/21/22 09/12/23 History capsule fluticasone fur. 100 mcg-umeclid 1 inh inhalation DAILY 90 days #90 09/04/23 09/08/23 Rx 62.5 mcg-vilant 25 mcg ea inhalat.powder (Trelegy Ellipta) ipratropium 0.5 mg-albuterol 3 mg 3 ml inhalation QID PRN shortness 09/04/23 09/08/23 Rx (2.5 mg base)/3 mL nebulization of breath or wheezing 90 days #270 soln mL clonazepam 0.5 mg tablet 0.5 - 1 mg PO NEEDED PRN Anxiety 09/12/23 09/12/23 History ibuprofen 200 mg tablet 200 - 400 mg PO Q4-6H PRN Pain 09/12/23 09/12/23 History pantoprazole 40 mg tablet,delayed 40 mg PO DAILY 09/12/23 09/12/23 History release New Prescriptions to Start Prescriptions: Allergies Allergy/AdvReac Type Severity Reaction Status Date / Time Penicillins Allergy Severe Swelling Verified 09/11/23 09:47 of Lip/Tongue/Throat Discharge Plan Disposition Patient Disposition: Left Against Medical Advice Providers Admit Provider: Vipul Cotter Attending Provider: Vipul Cotter
== END 2023-09-14 23:30 | disposition left against medical advice (07) | DRG 166 ==
LOC: 2ND 17:50
PROVIDERS: Internal Medicine; Internal Medicine Pulmonary Disease; Admitting Provider Internal Medicine Adolescent Medicine; PCP Family Medicine; Visit Provider Internal Medicine Adolescent Medicine
PROC: 07B74ZX Excision of Thorax Lymphatic, Percutaneous Endoscopic Approach, Diagnostic (ICD-10-PCS; principal; 2023-09-11 10:00)
DX: J18.9 Pneumonia, unspecified organism (principal); J96.01 Acute respiratory failure with hypoxia; R04.2 Hemoptysis; J43.9 Emphysema, unspecified; F17.210 Nicotine dependence, cigarettes, uncomplicated; G40.909 Epilepsy, unspecified, not intractable, without status epilepticus; F41.9 Anxiety disorder, unspecified
CPT/HCPCS: 31653; 36415; 70553; 71045; 71275; 80048; 80051; 80053; 80185; 82803; 83605; 83735; 85025; 87070; 87205; 93005; 94640; 94660; 94761; J3490; A9576; J1956; J2405; Q9967